=== PATIENT | female | born 1945 | race Hispanic/Latino ===

== ENCOUNTER → 2017-11-18 | Outpatient (CLI) | payer OTHER | END | disposition home or self-care (01) | LOC: RAH 07:35 | PROVIDERS: ATTEND Family Medicine | DX: R10.9 Unspecified abdominal pain (principal); Z90.49 Acquired absence of other specified parts of digestive tract | CPT/HCPCS: 76700 ==

== ENCOUNTER 2018-01-14 22:02 | Emergency (ER) | payer OTHER ==
[2018-01-14 22:40] LABS: CREATININE 1.1 mg/dL (0.5-1.5); POTASSIUM 4.5 mmol/L (3.5-5.1)
[2018-01-14 22:42] LABS: BASOPHILS % (AUTO) 0.7 % (0.0-5.0); EOSINOPHILS % (AUTO) 0.2 % (0.0-8.0); HEMATOCRIT 35.8 % (36-48); LYMPHOCYTES % (AUTO) 11.8 % (21.0-51.0); MEAN CORPUSCULAR HEMOGLOBIN 31.2 pg (27.0-33.0); MEAN CORPUSCULAR HGB CONC 34.7 g/dL (32.0-36.0); MEAN CORPUSCULAR VOLUME 89.8 fL (79-99); MONOCYTES % (AUTO) 6.9 % (3.0-13.0); NEUTROPHILS % (AUTO) 80.4 % (40.0-77.0); PLATELET COUNT (AUTO) 270 K/uL (130-400); RED BLOOD CELL COUNT(AUTO) 3.99 MIL/uL (4.00-5.50); RED CELL DISTRIBUTION WIDTH 13.3 % (11.0-15.5); WHITE BLOOD COUNT (AUTO) 10.9 K/uL (4.8-10.8)
[2018-01-14 22:44] LABS: ALBUMIN 3.4 g/dL (3.5-5.0); BILIRUBIN,TOTAL 0.5 mg/dL (0.2-1.0); TOTAL PROTEIN, SERUM 7.8 g/dL (6.0-8.3)
[2018-01-14] MEDS ORDERED: ASPIRIN 325 MG TABLET ONE (23:01)
[2018-01-14] MEDS ORDERED: ACETAMINOPHEN 325 MG TAB ONE (23:01)
[2018-01-14 23:16] LABS: APPEARANCE,URINE Clear (CLEAR); BILIRUBIN,URINE Negative (NEGATIVE); COLOR,URINE Yellow (YELLOW); GLUCOSE, URINE (UA) Negative (NEGATIVE); KETONES,URINE Negative (NEGATIVE); LEUKOCYTE ESTERASE ,URINE Trace (NEGATIVE); NITRATE,URINE Negative (NEGATIVE); OCCULT BLOOD,URINE Negative (NEGATIVE); PROTEIN,URINE Negative (NEGATIVE); UROBILINOGEN,URINE 0.2 mg/dL (0.2-1.0)
[2018-01-14 23:44] LABS: BACTERIA,URINE Rare /HPF (None Seen); RBC,URINE 0-1 /HPF (0-1); SQUAMOUS EPITHELIAL CELL,UR Moderate /HPF (0-2); WBC,URINE 0-1 /HPF (0-1)
[2018-01-15] MEDS ORDERED: FAMOTIDINE 20MG TAB 20 MG TAB ONE ×2 (00:49→00:54)
[2018-01-15] MEDS ORDERED: SUCRALFATE 1 GM TABLET ONE ×2 (00:49→00:53)
== END 2018-01-15 01:58 | disposition home or self-care (01) ==
LOC: EDH 22:02
DX: B34.9 Viral infection, unspecified (principal); J20.9 Acute bronchitis, unspecified; R51 Headache; E11.9 Type 2 diabetes mellitus without complications; E78.5 Hyperlipidemia, unspecified; I10 Essential (primary) hypertension; Z90.710 Acquired absence of both cervix and uterus; Z90.49 Acquired absence of other specified parts of digestive tract; Z79.84 Long term (current) use of oral hypoglycemic drugs; Z79.899 Other long term (current) drug therapy
CPT/HCPCS: 36415; 71046; 80053; 81001; 83690; 84484; 85025; 87804; 93005

== ENCOUNTER → 2018-09-23 | Outpatient (CLI) | payer OTHER | END | disposition home or self-care (01) | LOC: RAH 08:25 | PROVIDERS: ATTEND Family Medicine | DX: I37.1 Nonrheumatic pulmonary valve insufficiency (principal); I12.9 Hypertensive chronic kidney disease with stage 1 through stage 4 chronic kidney disease, or unspecified chronic kidney disease; N18.9 Chronic kidney disease, unspecified | CPT/HCPCS: 93306 ==

== ENCOUNTER → 2018-12-26 | Outpatient (CLI) | payer OTHER ==
[~2018-12-26] VITALS: Ht 152.4 cm; Wt 89.4 kg
[~2018-12-26] MED LIST: REGADENOSON 0.4 MG/5 ML PF SYG IVP SCH
== END | disposition home or self-care (01) ==
LOC: RAH 08:16
PROVIDERS: ATTEND Family Medicine
DX: I25.9 Chronic ischemic heart disease, unspecified (principal); R07.9 Chest pain, unspecified; I10 Essential (primary) hypertension
CPT/HCPCS: 78452; 93017; 96374; A9500 ×2; J2785

== ENCOUNTER → 2019-04-18 | Outpatient (CLI) | payer OTHER | END | disposition home or self-care (01) | LOC: OIH 15:29 | PROVIDERS: ATTEND Family Medicine | DX: M19.071 Primary osteoarthritis, right ankle and foot (principal); I70.90 Unspecified atherosclerosis; R22.41 Localized swelling, mass and lump, right lower limb; R07.81 Pleurodynia | CPT/HCPCS: 71100; 73610; 73630 ==

== ENCOUNTER → 2019-07-25 | Outpatient (CLI) | payer OTHER | END | disposition home or self-care (01) | LOC: OIH 14:40 | PROVIDERS: ATTEND Family Medicine | DX: R06.02 Shortness of breath (principal) | CPT/HCPCS: 71046 ==

== ENCOUNTER → 2019-10-01 | Outpatient (CLI) | payer OTHER | END | disposition home or self-care (01) | LOC: SHCH 13:47 | PROVIDERS: ATTEND Internal Medicine Cardiovascular Disease | DX: I51.7 Cardiomegaly (principal); I10 Essential (primary) hypertension | CPT/HCPCS: 93306 ==

== ENCOUNTER 2019-11-13 07:10 | Day surgery (SDC) | payer OTHER ==
[2019-11-07 14:30] LABS: BASOPHILS % (AUTO) 0.5 % (0.0-5.0); EOSINOPHILS % (AUTO) 1.2 % (0.0-8.0); HEMATOCRIT 39.9 % (36-48); LYMPHOCYTES % (AUTO) 20.5 % (21.0-51.0); MEAN CORPUSCULAR HEMOGLOBIN 30.4 pg (27.0-33.0); MEAN CORPUSCULAR HGB CONC 32.6 g/dL (32.0-36.0); MEAN CORPUSCULAR VOLUME 93.2 fL (79-99); NEUTROPHILS % (AUTO) 71.3 % (40.0-77.0); PLATELET COUNT (AUTO) 272 K/uL (130-400); RED BLOOD CELL COUNT(AUTO) 4.28 MIL/uL (4.00-5.50); WHITE BLOOD COUNT (AUTO) 10.5 K/uL (4.8-10.8)
[2019-11-07 14:31] VITALS: BP 145/80
[2019-11-07 14:37] LABS: CREATININE 0.8 mg/dL (0.5-1.5); POTASSIUM 3.9 mmol/L (3.5-5.1)
[2019-11-07 14:40] LABS: INR 0.97 (0.85-1.15); PROTHROMBIN TIME 10.2 SEC (9.6-11.6)
[2019-11-07 14:56] LABS: APPEARANCE,URINE Cloudy (CLEAR); BILIRUBIN,URINE Negative (NEGATIVE); COLOR,URINE Dark Yellow (YELLOW); GLUCOSE, URINE (UA) Negative (NEGATIVE); KETONES,URINE Trace mg/dL (NEGATIVE); LEUKOCYTE ESTERASE ,URINE Moderate (NEGATIVE); NITRATE,URINE Negative (NEGATIVE); OCCULT BLOOD,URINE Negative (NEGATIVE); PH,URINE 5.5 (5.0-8.0); PROTEIN,URINE POS 1+ mg/dL (NEGATIVE)
[2019-11-07 15:10] LABS: BACTERIA,URINE Many /HPF (None Seen); RBC,URINE None Seen /HPF (0-1); SQUAMOUS EPITHELIAL CELL,UR 0-2 /HPF (0-2)
--- NOTE | 2019-11-10 10:23 | NUR ---
PA FOR DR. NICOLE GONZALES NOTIFIED OF ABNORMAL UA, NO NEW ORDERS RECEIVED, OK TO PROCEED WITH [facility].
[2019-11-13] VITALS (10 sets, daily range): BP systolic 119–175; BP diastolic 62–83
[~2019-11-13] VITALS: Ht 152.4 cm; Wt 92.5 kg
[~2019-11-13 07:10] MED LIST changes: +FLUT1BLS IH; +INSU300I SQ; +METF-446 PO; +METO-408 PO; +OMEP40CA13 PO; -REGADENOSON 0.4 MG/5 ML PF SYG IVP SCH; +SIMV-46 PO; +SODIUM CHLORIDE 0.9% 500ML 500 ML IV SCH; +TRAZ-187 PO
[2019-11-13] MEDS ORDERED: SODIUM CHLORIDE 0.9% 1000ML 1,000 ML IV ONE (07:34)
--- NOTE | 2019-11-13 08:20 | NUR ---
FLACA ALTAMIRANO NOTIFIED OF GLUCOSE. ORDERS RECEIVED TO FOLLOW [facility] FOR INSULIN AND RECHECK INSULIN IN 30 MINUTES
--- NOTE | 2019-11-13 08:30 | NUR ---
REPORT ASSUMED CARE OF PT FROM MATHEW SAWYER. AWAKE IN NO ACUTE DISTRESS. DENIES PAIN OR SOA AT PRESENT TIME. 22 GAUGE TO LEFT WRIST WITH NS AT KVO. CONNECTED TO CONTINUOUS CARDIOPULMONARY MONITORING. SIDE RAILS UP X2, BED IN LOWEST POSITION, AND CALL LIGHT W/IN REACH.
[2019-11-13] MEDS ORDERED: INSULIN HUMULIN R 100 UNIT/ML 3ML ONE (08:43)
--- NOTE | 2019-11-13 09:34 | NUR ---
HYPERGLYCEMIA NOTIFIED FLACA FORD REGARDING F/U BLOOD SUGAR 292. STATED, "LET ME CALL DR. RIVERA AND I'LL CALL YOU BACK"
--- NOTE | 2019-11-13 10:37 | NUR ---
F/U HYPERGLYCEMIA BLOOD SUGAR 291. PER JANET HE HASN'T BEEN ABLE TO SPEAK WITH DR. RIVERA, BUT HE WILL CALL ME AFTER HE SPEAKS WITH HIM.
--- NOTE | 2019-11-13 11:13 | NUR ---
HYPERGLYCEMIA 20 UNITS OF HUMULIN R ADMINISTERED ORDERED BY DR. RIVERA.
[2019-11-13] MEDS ORDERED: INSULIN HUMULIN R 100 UNIT/ML 3ML SQ SCH (12:00)
[2019-11-13] MEDS ORDERED: SODIUM BICARB 50MEQ 50ML VIAL ONE (12:18)
[2019-11-13] MEDS ORDERED: NICARDIPINE HCL 25 MG/10 ML ML IV ONE (12:19)
[2019-11-13] MEDS ORDERED: NITROGLYCERIN 1 MG/VIAL VIAL IV ONE (12:19)
[2019-11-13] MEDS ORDERED: MIDAZOLAM HCL 1 MG/ML 2ML VIAL ONE (12:19)
[2019-11-13] MEDS ORDERED: HEPARIN SODIUM 1000UNIT/ML 10ML VIAL ONE (12:19)
[2019-11-13] MEDS ORDERED: LIDOCAINE HCL 2% 20ML ONE (12:20)
[2019-11-13] MEDS ORDERED: IOHEXOL 350 MG/ML 100ML INFUS..BTL IV ONE (12:20)
[2019-11-13] MEDS ORDERED: FENTANYL CITRATE PF 50 MCG/1 ML 2ML VIAL ONE ×2 (12:20→13:24)
--- NOTE | 2019-11-13 12:20 | NUR ---
CATHLAB PT TAKEN TO [facility] FOR SCHEDULED PROCEDURE VIA BED,
[2019-11-13] MEDS ORDERED: BIVALIRUDIN 250 MG/VIAL IV ONE (12:47)
[2019-11-13] MEDS ORDERED: IOHEXOL-350 50ML VIAL IV ONE (13:18)
--- NOTE | 2019-11-13 14:45 | NUR ---
POST-PROCEDURE RECEIVED FROM MANAGER MATH VIA BED S/P [facility]. AWAKE IN NO ACUTE DISTRESS. AAOX3. CONNECTED TO CONTINUOUS CARDIOPULMONARY MONITORING. RIGHT RADIAL BAND WITH 16ML OF AIR. NO SIGNS OF BLEEDING. PULSE OX TO RIGHT HAND 97%. PERCLOSE DRESSING TO RIGHT FEMORAL CLEAN, DRY, AND INTACT;SITE SOFT, NON-TENDER; NO SIGNS OF BLEEDING. EDUCATED PT AND FAMILY OF IMPORTANCE OF KEEPING HEAD FLAT AND RIGHT LEG STRAIGHT. BOTH VERBALIZED UNDERSTANDING. SIDE RAILS UP X2, BED IN LOWEST POSITION, AND CALL LIGHT W/IN REACH.
--- NOTE | 2019-11-13 14:48 | NUR ---
ROUNDS DR. RIVERA IN TO SEE PATIENT. FINDINGS FROM CATH PROCEDURE DISCUSSED WITH PT AND FAMILY IN GREEK; DISCUSSED NEW MEDICATIONS TO BE STARTED. PT AND FAMILY VERBALIZED UNDERSTANDING.
--- NOTE | 2019-11-13 15:05 | NUR ---
REPORT BEDSIDE REPORT GIVEN TO MATHEW HINOJOSA USING SBAR. CATH SITE TO RIGHT RADIAL (WITH RADIAL BAND) AND RIGHT FEMORAL W/ PERCLOSE CLEAN, DRY, AND INTACT;SITE W/O SIGNS OF BLEEDING. 2ML OF AIR REMOVED FROM RIGHT RADIAL BAND (14ML LEFT IN BAND); NO SIGNS OF BLEEDING NOTED. AWAKE IN NO ACUTE DISTRESS.
--- NOTE | 2019-11-13 16:29 | NUR ---
AT 1530 RECEIVED REPORT FROM MICAELA Boyd RN , PT IS LAYING FLAT IN BED, NO DISTRESS, DRESSING TO RIGHT GROIN D/I, PEDAL PULSES PRESENT TO BILATERAL FEET. NO C/O PAIN . TR BAND INTACT, SITE IS D/I NO ACTIVE BLEEDING OR HEMATOMA TO RT WRIST AND RT GROIN SITES. 14ML AIR IN TR BAND.
--- NOTE | 2019-11-13 19:00 | NUR ---
PT IS AAOX 3, NO C/O PAIN, DRESSING TO RT WRIST AND RT GROIN D/I. NO DISTRESS. INSTRUCTIONS GIVEN TO PT AND SON, BOTH VERBALIZED UNDERSTANDING. PRESCRIPTIONS GIVEN. PT STABLE, IV D/C, PT DRESSED WITH ASSISTANCE. PT TAKEN OUT IN W/C AND DRIVEN HOME BY SON SPOUSE.
== END 2019-11-13 19:00 | disposition home or self-care (01) ==
LOC: DAH 07:10
PROVIDERS: ATTEND Internal Medicine Cardiovascular Disease
DX: I25.119 Atherosclerotic heart disease of native coronary artery with unspecified angina pectoris (principal); E11.9 Type 2 diabetes mellitus without complications; I10 Essential (primary) hypertension; Z90.49 Acquired absence of other specified parts of digestive tract; Z90.710 Acquired absence of both cervix and uterus; Z79.01 Long term (current) use of anticoagulants; Z79.84 Long term (current) use of oral hypoglycemic drugs; Z79.899 Other long term (current) drug therapy
CPT/HCPCS: 36415; 71045; 80048; 81001; 82948 ×5; 85025; 85610; 85730; 93005; 93458; 96374; A4215; A4216; A4221; A4222; A4223 ×3; A4606; A4663; C1760; C1769 ×3; C1894 ×3; J1644 ×2; J1815 ×2; J2250; J3010 ×2; J3490 ×4; J7030; Q9965 ×2; Q9967; 99156; 99157; J0583

== ENCOUNTER 2020-10-24 12:12 | Observation (INO) | payer OTHER ==
[~2020-10-24 12:12] MED LIST changes: -SIMV-46 PO; -SODIUM CHLORIDE 0.9% 500ML 500 ML IV SCH
[2020-10-24 13:07] LABS: BASOPHILS % (AUTO) 0.4 % (0.0-5.0); HEMATOCRIT 37.6 % (36-48); LYMPHOCYTES % (AUTO) 9.4 % (21.0-51.0); MEAN CORPUSCULAR HGB CONC 32.7 g/dL (32.0-36.0); MEAN CORPUSCULAR VOLUME 91.7 fL (79-99); MONOCYTES % (AUTO) 6.4 % (3.0-13.0); NEUTROPHILS % (AUTO) 78.4 % (40.0-77.0); PLATELET COUNT (AUTO) 183 K/uL (130-400); RED CELL DISTRIBUTION WIDTH 13.1 % (11.0-15.5); WHITE BLOOD COUNT (AUTO) 8.2 K/uL (4.8-10.8)
[2020-10-24 13:12] LABS: POTASSIUM 4.5 mmol/L (3.5-5.1)
[2020-10-24 13:16] LABS: INR 1.02 (0.85-1.15); PROTHROMBIN TIME 10.9 SEC (9.6-11.6)
[2020-10-24 13:17] LABS: ALBUMIN 3.1 g/dL (3.5-5.0); BILIRUBIN,TOTAL 0.4 mg/dL (0.2-1.0); TOTAL PROTEIN, SERUM 6.7 g/dL (6.0-8.3)
[2020-10-24 13:18] LABS: PARTIAL THROMBOPLASTIN TIME 26.3 SEC (26.3-35.5)
[2020-10-24] MEDS ORDERED: INSULIN HUMULIN R 100 UNIT/ML 3ML ONE (13:21)
[2020-10-24] MEDS ORDERED: SODIUM CHLORIDE 0.9% 1000ML 1,000 ML IV ONE (13:22)
[2020-10-24 13:24] LABS: BILIRUBIN,URINE Negative (NEGATIVE); COLOR,URINE Yellow (YELLOW); GLUCOSE, URINE (UA) >=1000 mg/dL (NEGATIVE); KETONES,URINE Trace mg/dL (NEGATIVE); LEUKOCYTE ESTERASE ,URINE Negative (NEGATIVE); NITRATE,URINE Negative (NEGATIVE); OCCULT BLOOD,URINE Negative (NEGATIVE); PH,URINE 5.5 (5.0-8.0); PROTEIN,URINE POS 1+ mg/dL (NEGATIVE)
[2020-10-24 13:28] LABS: B-TYPE NATRIURETIC PEPTIDE 21 pg/mL (0-100)
[2020-10-24 13:29] LABS: APPEARANCE,URINE CLEAR (CLEAR)
[2020-10-24 13:45] LABS: RBC,URINE None Seen /HPF (0-1)
[2020-10-24 13:46] LABS: BACTERIA,URINE Rare /HPF (None Seen); SQUAMOUS EPITHELIAL CELL,UR Few /HPF (0-2)
[2020-10-24] MEDS ORDERED: ACETAMINOPHEN-CODEINE 300/30MG TAB ONE (13:57)
[2020-10-24] MEDS ORDERED: GLUCAGON 1MG KIT 1 MG ML IM PRN (19:30)
[2020-10-24] MEDS ORDERED: POTASSIUM CHLORIDE 20 MEQ ERTAB PO PRN (19:30)
[2020-10-24] MEDS ORDERED: SODIUM CHLORIDE 0.9% 1000ML 1,000 ML IV SCH (19:30)
[2020-10-24] MEDS ORDERED: POTASSIUM CHLORIDE 10% ELIXIR 20 MEQ/15 ML UDCUP PO PRN (19:30)
[2020-10-24] MEDS ORDERED: ONDANSETRON HCL 4 MG/2 ML VIAL IVP PRN (19:30)
[2020-10-24] MEDS ORDERED: DEXTROSE 50%-WATER 50 ML DISP.SYRIN IV PRN (19:30)
[2020-10-24] MEDS ORDERED: ALBUTEROL INHALER 90MCG/INH IH PRN (19:30)
[2020-10-24] MEDS ORDERED: ACETAMINOPHEN 325 MG TAB PO PRN (19:30)
[2020-10-24] MEDS ORDERED: LIDOCAINE HCL-MPF 1% 2ML VIAL IV PRN (19:30)
[2020-10-24] MEDS ORDERED: POTASSIUM CHLORIDE 20MEQ/100ML 100 ML IV PRN (19:30)
[2020-10-24] MEDS ORDERED: ACETAMINOPHEN 650 MG SUPPOSITORY RC PRN (19:30)
[2020-10-24] MEDS ORDERED: INSULIN HUMULIN R 100 UNIT/ML 3ML SQ SCH (21:00)
[2020-10-24 21:54] LABS: CREATINE KINASE, TOTAL 86 U/L (21-232); MYOGLOBIN 68 ng/mL (10-92); TROPONIN I < 0.04 ng/mL (0.00-0.06)
[2020-10-25] MEDS ORDERED: AZITHROMYCIN 250 MG TABLET PO SCH (00:15)
[2020-10-25] MEDS ORDERED: CEFTRIAXONE SODIUM 1 GM IVP SCH (00:15)
[2020-10-25] MEDS ORDERED: CEFTRIAXONE SODIUM 1 GM ONE (00:18)
[2020-10-25] MEDS ORDERED: AZITHROMYCIN 250 MG TABLET PO ONE (00:19)
[2020-10-25 06:08] LABS: BASOPHILS % (AUTO) 0.4 % (0.0-5.0); HEMATOCRIT 37.1 % (36-48); LYMPHOCYTES % (AUTO) 9.9 % (21.0-51.0); MEAN CORPUSCULAR HEMOGLOBIN 29.9 pg (27.0-33.0); MEAN CORPUSCULAR HGB CONC 32.3 g/dL (32.0-36.0); MEAN CORPUSCULAR VOLUME 92.3 fL (79-99); MONOCYTES % (AUTO) 7.3 % (3.0-13.0); NEUTROPHILS % (AUTO) 78.8 % (40.0-77.0); PLATELET COUNT (AUTO) 160 K/uL (130-400); RED BLOOD CELL COUNT(AUTO) 4.02 MIL/uL (4.00-5.50); WHITE BLOOD COUNT (AUTO) 8.5 K/uL (4.8-10.8)
[2020-10-25 06:37] LABS: CREATININE 0.9 mg/dL (0.5-1.5); MAGNESIUM 0.9 mg/dL (1.80-2.40); PHOSPHORUS 4.1 mg/dL (2.5-4.9); POTASSIUM 4.5 mmol/L (3.5-5.1)
[2020-10-25 08:13] LABS: CREATINE KINASE, TOTAL 74 U/L (21-232); MYOGLOBIN 43 ng/mL (10-92); TROPONIN I < 0.04 ng/mL (0.00-0.06)
[2020-10-25] MEDS ORDERED: MAGNESIUM 2GM PREMIX 50ML 100 ML IV ONE (09:04)
== END 2020-10-25 14:27 | disposition home or self-care (01) ==
LOC: EDH 12:12 → EDHIP 19:18
PROVIDERS: ADMIT Internal Medicine Critical Care Medicine; ATTEND Internal Medicine Critical Care Medicine
DX: U07.1 COVID-19 (principal); R07.89 Other chest pain; I25.10 Atherosclerotic heart disease of native coronary artery without angina pectoris; I11.0 Hypertensive heart disease with heart failure; I50.9 Heart failure, unspecified; E78.5 Hyperlipidemia, unspecified; E11.65 Type 2 diabetes mellitus with hyperglycemia; Z90.710 Acquired absence of both cervix and uterus; Z90.49 Acquired absence of other specified parts of digestive tract; Z79.899 Other long term (current) drug therapy
CPT/HCPCS: 36415 ×2; 71045; 80048; 80053; 81001; 82550 ×3; 82948; 83735; 83874 ×2; 83880; 84100; 84145; 84484 ×3; 85025 ×2; 85610; 85730; 87426; 93005; 99291; G0378 ×19; J0696; J1815; J3475; J7030

== ENCOUNTER → 2020-12-12 | Outpatient (CLI) | payer OTHER ==
[~2020-12-12] MED LIST changes: +REGADENOSON 0.4 MG/5 ML PF SYG IVP SCH
== END | disposition home or self-care (01) ==
LOC: RAH 08:32
PROVIDERS: ATTEND Internal Medicine
DX: R06.02 Shortness of breath (principal); R07.9 Chest pain, unspecified
CPT/HCPCS: 78452; 93017; 96374; A9500 ×2; J2785

== ENCOUNTER → 2020-12-13 | Outpatient (CLI) | payer OTHER ==
[~2020-12-13] MED LIST changes: -REGADENOSON 0.4 MG/5 ML PF SYG IVP SCH
== END | disposition home or self-care (01) ==
LOC: RAH 09:04
PROVIDERS: ATTEND Internal Medicine
DX: R55 Syncope and collapse (principal); R06.02 Shortness of breath; R07.9 Chest pain, unspecified
CPT/HCPCS: 93306; 93356

== ENCOUNTER 2021-03-03 14:52 | Emergency (ER) | payer OTHER ==
[2021-03-03] MEDS ORDERED: METHYLPREDNISOLONE SOD SUCC 125MG/2ML VIAL ONE (15:12)
[2021-03-03] MEDS ORDERED: DiphenhydrAMINE HCL 50 MG/ML VIAL ONE (15:12)
[2021-03-03] MEDS ORDERED: ONDANSETRON HCL 4 MG/2 ML VIAL ONE (15:12)
[2021-03-03] MEDS ORDERED: FAMOTIDINE/PF 20 MG/2 ML VIAL IV ONE (15:12)
[2021-03-03 15:32] LABS: BASOPHILS % (AUTO) 0.4 % (0.0-5.0); EOSINOPHILS % (AUTO) 5.7 % (0.0-8.0); HEMATOCRIT 39.9 % (36-48); LYMPHOCYTES % (AUTO) 16.1 % (21.0-51.0); MEAN CORPUSCULAR HGB CONC 33.8 g/dL (32.0-36.0); MEAN CORPUSCULAR VOLUME 91.5 fL (79-99); MONOCYTES % (AUTO) 2.4 % (3.0-13.0); NEUTROPHILS % (AUTO) 74.6 % (40.0-77.0); PLATELET COUNT (AUTO) 233 K/uL (130-400); RED BLOOD CELL COUNT(AUTO) 4.36 MIL/uL (4.00-5.50); RED CELL DISTRIBUTION WIDTH 13.3 % (11.0-15.5); WHITE BLOOD COUNT (AUTO) 15.8 K/uL (4.8-10.8)
[2021-03-03 15:54] LABS: ALBUMIN 3.5 g/dL (3.5-5.0); BILIRUBIN,TOTAL 0.7 mg/dL (0.2-1.0); POTASSIUM 4.5 mmol/L (3.5-5.1); TOTAL PROTEIN, SERUM 8.4 g/dL (6.0-8.3)
== END 2021-03-03 17:55 | disposition home or self-care (01) ==
LOC: EDH 14:52
DX: T63.441A Toxic effect of venom of bees, accidental (unintentional), initial encounter (principal); R11.2 Nausea with vomiting, unspecified; I12.9 Hypertensive chronic kidney disease with stage 1 through stage 4 chronic kidney disease, or unspecified chronic kidney disease; E11.22 Type 2 diabetes mellitus with diabetic chronic kidney disease; N18.9 Chronic kidney disease, unspecified; E78.5 Hyperlipidemia, unspecified; Z90.710 Acquired absence of both cervix and uterus; Z90.49 Acquired absence of other specified parts of digestive tract; Y92.89 Other specified places as the place of occurrence of the external cause
CPT/HCPCS: 36415; 80053; 84484; 85025; 93005; 96374; 96375; 99284; J1200; J2405; J2930; J3490

== ENCOUNTER 2021-06-03 17:40 | Inpatient (IN) | payer OTHER ==
[~2021-06-03] VITALS: Ht 162.6 cm; Wt 79.0 kg
[~2021-06-03 17:40] MED LIST changes: -OMEP40CA13 PO; +OMEP40CA21 PO
[2021-06-03 20:35] LABS: BASOPHILS % (AUTO) 0.7 % (0.0-5.0); EOSINOPHILS % (AUTO) 2.5 % (0.0-8.0); HEMATOCRIT 28.1 % (36-48); LYMPHOCYTES % (AUTO) 15.9 % (21.0-51.0); MEAN CORPUSCULAR HEMOGLOBIN 29.7 pg (27.0-33.0); MEAN CORPUSCULAR HGB CONC 33.1 g/dL (32.0-36.0); MEAN CORPUSCULAR VOLUME 89.8 fL (79-99); MONOCYTES % (AUTO) 8.5 % (3.0-13.0); NEUTROPHILS % (AUTO) 71.7 % (40.0-77.0); PLATELET COUNT (AUTO) 388 K/uL (130-400); RED BLOOD CELL COUNT(AUTO) 3.13 MIL/uL (4.00-5.50); RED CELL DISTRIBUTION WIDTH 13.2 % (11.0-15.5); WHITE BLOOD COUNT (AUTO) 13.4 K/uL (4.8-10.8)
[2021-06-03 20:51] LABS: INR 1.1 (0.85-1.15); PROTHROMBIN TIME 11.9 SEC (9.6-11.6)
[2021-06-03 20:53] VITALS: BP 141/70
[2021-06-03 21:00] LABS: B-TYPE NATRIURETIC PEPTIDE 40 pg/mL (0-100)
[2021-06-03 21:11] LABS: ALBUMIN 2.2 g/dL (3.5-5.0); BILIRUBIN,TOTAL 0.3 mg/dL (0.2-1.0); CREATININE 1.6 mg/dL (0.5-1.5); POTASSIUM 3.4 mmol/L (3.5-5.1); TOTAL PROTEIN, SERUM 7.3 g/dL (6.0-8.3)
[2021-06-03] MEDS ORDERED: BALS60OI TP (23:30)
[2021-06-03] MEDS ORDERED: CLOT45CR62 VG (23:31)
[2021-06-03] MEDS ORDERED: GABA100C PO (23:36)
[2021-06-03] MEDS ORDERED: FLUT1BLS IH (23:39)
[2021-06-03] MEDS ORDERED: INSU300I SQ (23:40)
[2021-06-03] MEDS ORDERED: METF-446 PO (23:41)
[2021-06-03] MEDS ORDERED: FAMO20TA8 PO (23:42)
[2021-06-03] MEDS ORDERED: ASPI-1197 PO (23:44)
[2021-06-03] MEDS ORDERED: CLOP75TA14 PO (23:44)
[2021-06-03] MEDS ORDERED: FURO20TA4 PO (23:45)
[2021-06-03] MEDS ORDERED: ATOR40TA71 PO (23:48)
[2021-06-03] MEDS ORDERED: TRAM50TA4 PO (23:49)
[2021-06-03] MEDS ORDERED: ACET-3194 PO (23:51)
[2021-06-03] MEDS ORDERED: GUAI100S13 PO (23:54)
[2021-06-04] VITALS (9 sets, daily range): BP systolic 136–155; BP diastolic 53–76
[2021-06-04] MEDS ORDERED: 0.9%NACL 50ML IV SCH (02:00)
[2021-06-04] MEDS ORDERED: ZOSYN 3.375GM+NS 50ML 50 ML IV ONE (02:14)
[2021-06-04] MEDS: ZOSYN 3.375GM +NS 50ML IV SCH ×3 (02:21→21:40)
[2021-06-04 06:17] LABS: BASOPHILS % (AUTO) 0.9 % (0.0-5.0); EOSINOPHILS % (AUTO) 2.6 % (0.0-8.0); HEMATOCRIT 27.9 % (36-48); MEAN CORPUSCULAR HEMOGLOBIN 29.3 pg (27.0-33.0); MEAN CORPUSCULAR HGB CONC 32.3 g/dL (32.0-36.0); MEAN CORPUSCULAR VOLUME 90.9 fL (79-99); MONOCYTES % (AUTO) 8.9 % (3.0-13.0); NEUTROPHILS % (AUTO) 70.1 % (40.0-77.0); PLATELET COUNT (AUTO) 337 K/uL (130-400); RED BLOOD CELL COUNT(AUTO) 3.07 MIL/uL (4.00-5.50); RED CELL DISTRIBUTION WIDTH 13.3 % (11.0-15.5); WHITE BLOOD COUNT (AUTO) 11.1 K/uL (4.8-10.8)
[2021-06-04 06:28] LABS: ALBUMIN 1.9 g/dL (3.5-5.0); CREATININE 1.5 mg/dL (0.5-1.5)
[2021-06-04 06:31] LABS: BILIRUBIN,TOTAL 0.4 mg/dL (0.2-1.0); TOTAL PROTEIN, SERUM 6.6 g/dL (6.0-8.3)
[2021-06-04] MEDS ORDERED: DEXTROSE 50%-WATER 50 ML DISP.SYRIN IV ONE (06:39)
[2021-06-04] MEDS ORDERED: POTASSIUM CHLORIDE 20MEQ/100ML 100 ML IV PRN (18:30)
[2021-06-04] MEDS ORDERED: POTASSIUM CHLORIDE 10% ELIXIR 20 MEQ/15 ML UDCUP PO PRN (18:30)
[2021-06-04] MEDS ORDERED: LIDOCAINE HCL-MPF 1% 2ML VIAL IV PRN (18:30)
[2021-06-04] MEDS: KCL 20 MEQ ERTAB PO PRN (19:18)
[2021-06-04] MEDS ORDERED: GUAIFENESIN SUGAR-FREE 100 MG/5 ML UDCUP PO PRN (21:00)
[2021-06-04] MEDS: GABAPENTIN 100 MG CAPSULE PO SCH (21:40)
[2021-06-04] MEDS: TRAZODONE HCL 100 MG TABLET PO SCH (21:40)
[2021-06-04] MEDS: TRAMADOL HCL 50 MG TABLET PO PRN (21:41)
[2021-06-05 04:00] VITALS: BP 153/69
[2021-06-05 05:14] LABS: BASOPHILS % (AUTO) 0.8 % (0.0-5.0); HEMATOCRIT 25.9 % (36-48); LYMPHOCYTES % (AUTO) 18.2 % (21.0-51.0); MEAN CORPUSCULAR HEMOGLOBIN 29.1 pg (27.0-33.0); MEAN CORPUSCULAR HGB CONC 32.4 g/dL (32.0-36.0); MEAN CORPUSCULAR VOLUME 89.6 fL (79-99); MONOCYTES % (AUTO) 8.9 % (3.0-13.0); NEUTROPHILS % (AUTO) 67.8 % (40.0-77.0); PLATELET COUNT (AUTO) 337 K/uL (130-400); RED BLOOD CELL COUNT(AUTO) 2.89 MIL/uL (4.00-5.50); RED CELL DISTRIBUTION WIDTH 13.2 % (11.0-15.5); WHITE BLOOD COUNT (AUTO) 9.5 K/uL (4.8-10.8)
[2021-06-05 05:34] LABS: ALBUMIN 1.9 g/dL (3.5-5.0); BILIRUBIN,TOTAL 0.3 mg/dL (0.2-1.0); CREATININE 1.5 mg/dL (0.5-1.5); POTASSIUM 3.4 mmol/L (3.5-5.1); TOTAL PROTEIN, SERUM 6.3 g/dL (6.0-8.3)
[2021-06-05] MEDS: KCL 20 MEQ ERTAB PO PRN ×2 (06:02→12:14)
[2021-06-05 08:10] VITALS: BP 137/66
[2021-06-05] MEDS: FLUTICASONE/VILANTEROL 1 EACH BLST.W.DEV IH SCH (09:00)
[2021-06-05] MEDS: NYSTATIN-TRIAMCINOLONE CREAM 15 GM TP SCH ×2 (09:00→20:39)
[2021-06-05] MEDS: BALSAM PERU/CASTOR OIL 60 GM TUBE TP SCH (09:00)
[2021-06-05] MEDS: ASPIRIN 81MG CHEW TAB PO SCH (09:39)
[2021-06-05] MEDS: CLOPIDOGREL 75MG TAB PO SCH (09:39)
[2021-06-05] MEDS: METOPROLOL SUCCINATE 50 MG TAB.SR.24H PO SCH (09:39)
[2021-06-05] MEDS: FAMOTIDINE 20MG TAB PO SCH (09:39)
[2021-06-05] MEDS: GABAPENTIN 100 MG CAPSULE PO SCH ×2 (09:40→20:38)
[2021-06-05] MEDS: FUROSEMIDE 20 MG TABLET PO SCH (09:41)
[2021-06-05] MEDS: ZOSYN 3.375GM +NS 50ML IV SCH ×2 (09:41→20:40)
[2021-06-05 11:40] VITALS: BP 151/39
[2021-06-05 16:02] VITALS: BP 162/57
[2021-06-05] MEDS: ATORVASTATIN 40 MG TABLET PO SCH (17:11)
[2021-06-05] MEDS: TRAMADOL HCL 50 MG TABLET PO PRN (18:06)
[2021-06-05 19:50] VITALS: BP 149/53
[2021-06-05] MEDS: TRAZODONE HCL 100 MG TABLET PO SCH (20:38)
[2021-06-05 23:33] VITALS: BP 135/56
[2021-06-06 04:08] VITALS: BP 140/61
[2021-06-06 08:00] VITALS: BP 134/41
[2021-06-06] MEDS: FUROSEMIDE 20 MG TABLET PO SCH (08:32)
[2021-06-06] MEDS: CLOPIDOGREL 75MG TAB PO SCH (08:32)
[2021-06-06] MEDS: ASPIRIN 81MG CHEW TAB PO SCH (08:32)
[2021-06-06] MEDS: FAMOTIDINE 20MG TAB PO SCH (08:33)
[2021-06-06] MEDS: METOPROLOL SUCCINATE 50 MG TAB.SR.24H PO SCH (08:33)
[2021-06-06] MEDS: GABAPENTIN 100 MG CAPSULE PO SCH ×2 (08:33→21:42)
[2021-06-06] MEDS: ZOSYN 3.375GM +NS 50ML IV SCH ×2 (08:35→21:42)
[2021-06-06] MEDS: FLUTICASONE/VILANTEROL 1 EACH BLST.W.DEV IH SCH (09:00)
[2021-06-06] MEDS: BALSAM PERU/CASTOR OIL 60 GM TUBE TP SCH (09:40)
[2021-06-06] MEDS: NYSTATIN-TRIAMCINOLONE CREAM 15 GM TP SCH ×2 (09:40→21:48)
[2021-06-06 11:55] VITALS: BP 127/70
[2021-06-06 16:00] VITALS: BP 155/58
[2021-06-06] MEDS: ATORVASTATIN 40 MG TABLET PO SCH (18:06)
[2021-06-06] MEDS: TRAMADOL HCL 50 MG TABLET PO PRN (18:09)
[2021-06-06 19:35] VITALS: BP 158/38
[2021-06-06] MEDS: TRAZODONE HCL 100 MG TABLET PO SCH (21:41)
[2021-06-07] VITALS (7 sets, daily range): BP systolic 118–158; BP diastolic 45–65
[2021-06-07 06:16] LABS: MEAN CORPUSCULAR HEMOGLOBIN 29.1 pg (27.0-33.0); MEAN CORPUSCULAR HGB CONC 32.2 g/dL (32.0-36.0); MEAN CORPUSCULAR VOLUME 90.3 fL (79-99); RED BLOOD CELL COUNT(AUTO) 2.99 MIL/uL (4.00-5.50); RED CELL DISTRIBUTION WIDTH 13.1 % (11.0-15.5); WHITE BLOOD COUNT (AUTO) 9.5 K/uL (4.8-10.8)
[2021-06-07 06:40] LABS: CREATININE 1.6 mg/dL (0.5-1.5); POTASSIUM 3.5 mmol/L (3.5-5.1)
[2021-06-07] MEDS: ASPIRIN 81MG CHEW TAB PO SCH (09:28)
[2021-06-07] MEDS: FLUTICASONE/VILANTEROL 1 EACH BLST.W.DEV IH SCH (09:28)
[2021-06-07] MEDS: ZOSYN 3.375GM +NS 50ML IV SCH ×2 (09:28→20:53)
[2021-06-07] MEDS: FUROSEMIDE 20 MG TABLET PO SCH (09:30)
[2021-06-07] MEDS: FAMOTIDINE 20MG TAB PO SCH (09:30)
[2021-06-07] MEDS: CLOPIDOGREL 75MG TAB PO SCH (09:30)
[2021-06-07] MEDS: METOPROLOL SUCCINATE 50 MG TAB.SR.24H PO SCH (09:31)
[2021-06-07] MEDS: GABAPENTIN 100 MG CAPSULE PO SCH ×2 (09:55→20:53)
[2021-06-07] MEDS: NYSTATIN-TRIAMCINOLONE CREAM 15 GM TP SCH ×2 (09:59→20:53)
[2021-06-07] MEDS ORDERED: GLUCAGON 1MG KIT 1 MG ML IM PRN (13:00)
[2021-06-07] MEDS ORDERED: DEXTROSE 50%-WATER 50 ML DISP.SYRIN IV PRN (13:00)
[2021-06-07] MEDS: INSULIN HUMULIN R 100 UNIT/ML 3ML SQ SCH ×2 (17:24→20:18)
[2021-06-07] MEDS: ATORVASTATIN 40 MG TABLET PO SCH (17:33)
[2021-06-07] MEDS: TRAZODONE HCL 100 MG TABLET PO SCH (20:53)
[2021-06-07] MEDS: BALSAM PERU/CASTOR OIL 60 GM TUBE TP SCH (20:54)
[2021-06-08 04:01] VITALS: BP 143/65
[2021-06-08 08:00] VITALS: BP 153/72
[2021-06-08] MEDS: FUROSEMIDE 20 MG TABLET PO SCH (09:19)
[2021-06-08] MEDS: FAMOTIDINE 20MG TAB PO SCH (09:19)
[2021-06-08] MEDS: GABAPENTIN 100 MG CAPSULE PO SCH ×2 (09:19→20:51)
[2021-06-08] MEDS: CLOPIDOGREL 75MG TAB PO SCH (09:19)
[2021-06-08] MEDS: ASPIRIN 81MG CHEW TAB PO SCH (09:19)
[2021-06-08] MEDS: METOPROLOL SUCCINATE 50 MG TAB.SR.24H PO SCH (09:20)
[2021-06-08] MEDS: ZOSYN 3.375GM +NS 50ML IV SCH ×2 (09:35→20:51)
[2021-06-08] MEDS: FLUTICASONE/VILANTEROL 1 EACH BLST.W.DEV IH SCH (09:35)
[2021-06-08] MEDS: NYSTATIN-TRIAMCINOLONE CREAM 15 GM TP SCH ×2 (09:36→20:52)
[2021-06-08] MEDS: BALSAM PERU/CASTOR OIL 60 GM TUBE TP SCH (09:36)
[2021-06-08 11:41] VITALS: BP 139/51
[2021-06-08 16:00] VITALS: BP 155/83
[2021-06-08] MEDS: ATORVASTATIN 40 MG TABLET PO SCH (16:25)
[2021-06-08] MEDS: INSULIN HUMULIN R 100 UNIT/ML 3ML SQ SCH (16:26)
[2021-06-08] MEDS: KCL 20 MEQ ERTAB PO PRN (17:03)
[2021-06-08] MEDS: TRAMADOL HCL 50 MG TABLET PO PRN (18:44)
[2021-06-08 20:00] VITALS: BP 154/76
[2021-06-08] MEDS: TRAZODONE HCL 100 MG TABLET PO SCH (20:51)
[2021-06-08 23:18] VITALS: BP 139/73
[2021-06-09 04:01] VITALS: BP 156/63
[2021-06-09 05:12] LABS: BASOPHILS % (AUTO) 1.2 % (0.0-5.0); EOSINOPHILS % (AUTO) 4.4 % (0.0-8.0); HEMATOCRIT 29.2 % (36-48); LYMPHOCYTES % (AUTO) 17.7 % (21.0-51.0); MEAN CORPUSCULAR HGB CONC 32.2 g/dL (32.0-36.0); MEAN CORPUSCULAR VOLUME 90.1 fL (79-99); MONOCYTES % (AUTO) 8.6 % (3.0-13.0); NEUTROPHILS % (AUTO) 67.6 % (40.0-77.0); PLATELET COUNT (AUTO) 317 K/uL (130-400); RED BLOOD CELL COUNT(AUTO) 3.24 MIL/uL (4.00-5.50); RED CELL DISTRIBUTION WIDTH 13.2 % (11.0-15.5); WHITE BLOOD COUNT (AUTO) 9.4 K/uL (4.8-10.8)
[2021-06-09 05:32] LABS: INR 1.14 (0.85-1.15); PROTHROMBIN TIME 12.3 SEC (9.6-11.6)
[2021-06-09 05:34] LABS: PARTIAL THROMBOPLASTIN TIME 24.3 SEC (26.3-35.5)
[2021-06-09] MEDS: INSULIN HUMULIN R 100 UNIT/ML 3ML SQ SCH ×2 (05:34→16:30)
[2021-06-09 05:35] LABS: CREATININE 1.6 mg/dL (0.5-1.5); POTASSIUM 3.5 mmol/L (3.5-5.1)
[2021-06-09] MEDS: KCL 20 MEQ ERTAB PO PRN (05:51)
[2021-06-09 08:00] VITALS: BP 133/51
[2021-06-09] MEDS: FLUTICASONE/VILANTEROL 1 EACH BLST.W.DEV IH SCH (09:00)
[2021-06-09] MEDS: ASPIRIN 81MG CHEW TAB PO SCH (09:24)
[2021-06-09] MEDS: FUROSEMIDE 20 MG TABLET PO SCH (09:24)
[2021-06-09] MEDS: CLOPIDOGREL 75MG TAB PO SCH (09:24)
[2021-06-09] MEDS: METOPROLOL SUCCINATE 50 MG TAB.SR.24H PO SCH (09:25)
[2021-06-09] MEDS: GABAPENTIN 100 MG CAPSULE PO SCH ×2 (09:26→20:13)
[2021-06-09] MEDS: FAMOTIDINE 20MG TAB PO SCH (09:27)
[2021-06-09] MEDS: ZOSYN 3.375GM +NS 50ML IV SCH ×2 (09:27→20:12)
[2021-06-09] MEDS: NYSTATIN-TRIAMCINOLONE CREAM 15 GM TP SCH ×2 (09:28→20:13)
[2021-06-09] MEDS: BALSAM PERU/CASTOR OIL 60 GM TUBE TP SCH (09:28)
[2021-06-09] MEDS: TRAMADOL HCL 50 MG TABLET PO PRN (09:33)
[2021-06-09 16:00] VITALS: BP 149/87
[2021-06-09] MEDS: ATORVASTATIN 40 MG TABLET PO SCH (17:35)
[2021-06-09 20:00] VITALS: BP 144/64
[2021-06-09] MEDS: TRAZODONE HCL 100 MG TABLET PO SCH (20:13)
[2021-06-10] VITALS (22 sets, daily range): BP systolic 115–160; BP diastolic 64–94
[2021-06-10 05:04] LABS: HEMATOCRIT 30.4 % (36-48); MEAN CORPUSCULAR HEMOGLOBIN 29.4 pg (27.0-33.0); MEAN CORPUSCULAR HGB CONC 33.2 g/dL (32.0-36.0); MEAN CORPUSCULAR VOLUME 88.4 fL (79-99); RED BLOOD CELL COUNT(AUTO) 3.44 MIL/uL (4.00-5.50); RED CELL DISTRIBUTION WIDTH 13.3 % (11.0-15.5); WHITE BLOOD COUNT (AUTO) 10.6 K/uL (4.8-10.8)
[2021-06-10 05:22] LABS: CREATININE 1.6 mg/dL (0.5-1.5); POTASSIUM 3.4 mmol/L (3.5-5.1)
[2021-06-10 05:40] LABS: INR 1.1 (0.85-1.15); PROTHROMBIN TIME 11.9 SEC (9.6-11.6)
[2021-06-10 05:41] LABS: PARTIAL THROMBOPLASTIN TIME 24.1 SEC (26.3-35.5)
[2021-06-10] MEDS: INSULIN HUMULIN R 100 UNIT/ML 3ML SQ SCH ×2 (06:32→16:30)
[2021-06-10] MEDS: KCL 20 MEQ ERTAB PO PRN (06:37)
[2021-06-10] MEDS: FAMOTIDINE 20MG TAB PO SCH (09:00)
[2021-06-10] MEDS: NYSTATIN-TRIAMCINOLONE CREAM 15 GM TP SCH ×2 (09:00→20:51)
[2021-06-10] MEDS: FLUTICASONE/VILANTEROL 1 EACH BLST.W.DEV IH SCH (09:00)
[2021-06-10] MEDS: GABAPENTIN 100 MG CAPSULE PO SCH ×2 (09:00→20:51)
[2021-06-10] MEDS: ASPIRIN 81MG CHEW TAB PO SCH (09:00)
[2021-06-10] MEDS: METOPROLOL SUCCINATE 50 MG TAB.SR.24H PO SCH (09:00)
[2021-06-10] MEDS: FUROSEMIDE 20 MG TABLET PO SCH (09:00)
[2021-06-10] MEDS: BALSAM PERU/CASTOR OIL 60 GM TUBE TP SCH (09:00)
[2021-06-10] MEDS: CLOPIDOGREL 75MG TAB PO SCH (09:00)
[2021-06-10] MEDS: ZOSYN 3.375GM +NS 50ML IV SCH ×2 (09:00→20:50)
[2021-06-10] MEDS ORDERED: ALTEPLASE 2MG VIAL 2 MG/VIAL VIAL IVCATH SCH (11:00)
[2021-06-10] MEDS ORDERED: LIDOCAINE PF 100MG/5ML (2%) SYRINGE 5ML ONE (15:51)
[2021-06-10] MEDS ORDERED: PROPOFOL 10 MG/ML 20ML VIAL IV ONE (15:51)
[2021-06-10] MEDS ORDERED: FENTANYL CITRATE PF 50 MCG/1 ML 2ML VIAL ONE ×3 (15:52→18:32)
[2021-06-10] MEDS ORDERED: ONDANSETRON 4MG INJ ONE (15:52)
[2021-06-10] MEDS ORDERED: ROCURONIUM 10MG/1ML SYR 10 MG/ML ML ONE (15:52)
[2021-06-10] MEDS ORDERED: LIDOCAINE HCL MDV 0.5% 50ML VIAL IJ ONE (16:36)
[2021-06-10] MEDS ORDERED: ROPIVACAINE 0.5% 5MG/ML 30ML IJ ONE (16:36)
[2021-06-10] MEDS ORDERED: MIDAZOLAM HCL 1 MG/ML 2ML VIAL ONE (16:39)
[2021-06-10] MEDS: ATORVASTATIN 40 MG TABLET PO SCH (17:00)
[2021-06-10] MEDS ORDERED: EPHEDRINE SULFATE 50 MG/ML AMPULE ONE (17:47)
[2021-06-10] MEDS ORDERED: NEOSTIGMINE 5MG/5ML SYR IV ONE (18:21)
[2021-06-10] MEDS ORDERED: GLYCOPYRROLATE 1 MG/5 ML SYRINGE ONE (18:21)
[2021-06-10] MEDS: TRAZODONE HCL 100 MG TABLET PO SCH (20:50)
[2021-06-10] MEDS ORDERED: ALTEPLASE 2MG VIAL 2 MG/VIAL VIAL IVCATH ONE (21:30)
[2021-06-11 04:13] VITALS: BP 139/82
[2021-06-11] MEDS: INSULIN HUMULIN R 100 UNIT/ML 3ML SQ SCH ×2 (07:34→17:56)
[2021-06-11 08:00] VITALS: BP 149/79
[2021-06-11] MEDS: ASPIRIN 81MG CHEW TAB PO SCH (10:48)
[2021-06-11] MEDS: CLOPIDOGREL 75MG TAB PO SCH (10:49)
[2021-06-11] MEDS: FUROSEMIDE 20 MG TABLET PO SCH (10:49)
[2021-06-11] MEDS: FAMOTIDINE 20MG TAB PO SCH (10:49)
[2021-06-11] MEDS: GABAPENTIN 100 MG CAPSULE PO SCH ×2 (10:50→19:52)
[2021-06-11] MEDS: METOPROLOL SUCCINATE 50 MG TAB.SR.24H PO SCH (10:50)
[2021-06-11] MEDS: ZOSYN 3.375GM +NS 50ML IV SCH ×2 (10:50→19:52)
[2021-06-11] MEDS: NYSTATIN-TRIAMCINOLONE CREAM 15 GM TP SCH ×2 (10:51→19:53)
[2021-06-11] MEDS: FLUTICASONE/VILANTEROL 1 EACH BLST.W.DEV IH SCH (10:51)
[2021-06-11] MEDS: BALSAM PERU/CASTOR OIL 60 GM TUBE TP SCH (10:52)
[2021-06-11 12:00] VITALS: BP 136/62
[2021-06-11] MEDS: HYDROCODONE/ACETAMINOPHEN 5/325 MG TAB PO PRN ×2 (14:42→22:26)
[2021-06-11 16:00] VITALS: BP 145/71
[2021-06-11] MEDS: ATORVASTATIN 40 MG TABLET PO SCH (17:50)
[2021-06-11] MEDS: TRAZODONE HCL 100 MG TABLET PO SCH (19:52)
[2021-06-11 20:00] VITALS: BP 140/68
[2021-06-12] VITALS: BP 136/69
[2021-06-12 04:00] VITALS: BP 147/69
[2021-06-12] MEDS: HYDROCODONE/ACETAMINOPHEN 5/325 MG TAB PO PRN ×2 (06:32→11:48)
[2021-06-12] MEDS: INSULIN HUMULIN R 100 UNIT/ML 3ML SQ SCH (06:33)
[2021-06-12 07:54] LABS: BASOPHILS % (AUTO) 0.7 % (0.0-5.0); EOSINOPHILS % (AUTO) 0.9 % (0.0-8.0); HEMATOCRIT 23.7 % (36-48); LYMPHOCYTES % (AUTO) 12.3 % (21.0-51.0); MEAN CORPUSCULAR HEMOGLOBIN 29.6 pg (27.0-33.0); MEAN CORPUSCULAR HGB CONC 33.3 g/dL (32.0-36.0); MEAN CORPUSCULAR VOLUME 88.8 fL (79-99); MONOCYTES % (AUTO) 7.2 % (3.0-13.0); NEUTROPHILS % (AUTO) 78.4 % (40.0-77.0); PLATELET COUNT (AUTO) 291 K/uL (130-400); RED BLOOD CELL COUNT(AUTO) 2.67 MIL/uL (4.00-5.50); RED CELL DISTRIBUTION WIDTH 13.8 % (11.0-15.5); WHITE BLOOD COUNT (AUTO) 12.7 K/uL (4.8-10.8)
[2021-06-12 08:10] LABS: ALBUMIN 2.1 g/dL (3.5-5.0); BILIRUBIN,TOTAL 0.3 mg/dL (0.2-1.0); CREATININE 1.5 mg/dL (0.5-1.5); TOTAL PROTEIN, SERUM 6.8 g/dL (6.0-8.3)
[2021-06-12 08:14] VITALS: BP 140/70
[2021-06-12 08:24] LABS: POTASSIUM 2.9 mmol/L (3.5-5.1)
[2021-06-12] MEDS: ASPIRIN 81MG CHEW TAB PO SCH (08:41)
[2021-06-12] MEDS: METOPROLOL SUCCINATE 50 MG TAB.SR.24H PO SCH (08:41)
[2021-06-12] MEDS: GABAPENTIN 100 MG CAPSULE PO SCH (08:41)
[2021-06-12] MEDS: CLOPIDOGREL 75MG TAB PO SCH (08:41)
[2021-06-12] MEDS: FAMOTIDINE 20MG TAB PO SCH (08:41)
[2021-06-12] MEDS: FUROSEMIDE 20 MG TABLET PO SCH (08:43)
[2021-06-12] MEDS ORDERED: INSULIN GLARGINE 100 UNITS/ML 10 ML VIAL SQ SCH (09:00)
[2021-06-12] MEDS: BALSAM PERU/CASTOR OIL 60 GM TUBE TP SCH (09:02)
[2021-06-12] MEDS: NYSTATIN-TRIAMCINOLONE CREAM 15 GM TP SCH (09:02)
[2021-06-12] MEDS ORDERED: ALTEPLASE 2MG VIAL 2 MG/VIAL VIAL IVCATH SCH (11:30)
[2021-06-12 12:00] VITALS: BP 155/75
[2021-06-12 16:00] VITALS: BP 128/74
== END 2021-06-12 17:15 | DRG 475 ==
LOC: EDH 17:40 → EDHIP 21:45 → 3CH 06-04 15:59
PROVIDERS: ADMIT Internal Medicine; ATTEND Internal Medicine
PROC: 0Y6J0Z1 Detachment at Left Lower Leg, High, Open Approach (ICD-10-PCS; principal; 2021-06-11)
PROC: 3E0T3BZ Introduction of Anesthetic Agent into Peripheral Nerves and Plexi, Percutaneous Approach (ICD-10-PCS; 2021-06-11)
PROC: 3E0T33Z Introduction of Anti-inflammatory into Peripheral Nerves and Plexi, Percutaneous Approach (ICD-10-PCS; 2021-06-11)
DX: T87.89 Other complications of amputation stump (principal); E11.52 Type 2 diabetes mellitus with diabetic peripheral angiopathy with gangrene; M86.8X7 Other osteomyelitis, ankle and foot; I70.92 Chronic total occlusion of artery of the extremities; L03.116 Cellulitis of left lower limb; L03.115 Cellulitis of right lower limb; T81.49XA Infection following a procedure, other surgical site, initial encounter; E11.69 Type 2 diabetes mellitus with other specified complication; E78.00 Pure hypercholesterolemia, unspecified; I11.9 Hypertensive heart disease without heart failure; D64.9 Anemia, unspecified; E78.5 Hyperlipidemia, unspecified; E87.6 Hypokalemia; I25.10 Atherosclerotic heart disease of native coronary artery without angina pectoris; Y83.5 Amputation of limb(s) as the cause of abnormal reaction of the patient, or of later complication, without mention of misadventure at the time of the procedure; Z20.822 Contact with and (suspected) exposure to COVID-19; Z89.412 Acquired absence of left great toe; Y92.89 Other specified places as the place of occurrence of the external cause
CPT/HCPCS: 36415; 71045; 73660; 73718; 80048; 80053; 82550; 82948; 83605; 83880; 84132; 84145; 84484; 85025; 85027; 85610; 85730; 87635; 93005; 93926; 97039; C9803; G0378; J1815; J2001; J2250; J2405; J2543; J2704; J2710; J2795; J2997; J3010; J3480; J3490; J7070; J7120

== ENCOUNTER 2021-07-09 16:36 | Inpatient (IN) | payer OTHER ==
[~2021-07-09] VITALS: Ht 157.5 cm; Wt 75.7 kg
[~2021-07-09 16:36] MED LIST changes: +ACET-3194 PO; +ASPI-1197 PO; +ATOR40TA71 PO; +BALS60OI TP; +CLOP75TA14 PO; +CLOT45CR62 VG; +FAMO20TA8 PO; +FURO20TA4 PO; +GABA100C PO; +GUAI100S13 PO; +TRAM50TA4 PO
[2021-07-09] MEDS ORDERED: ZOSYN 3.375GM+NS 50ML 50 ML IV STA (18:21)
[2021-07-09 18:23] LABS: BASOPHILS % (AUTO) 0.5 % (0.0-5.0); EOSINOPHILS % (AUTO) 0.2 % (0.0-8.0); HEMATOCRIT 32.2 % (36-48); MEAN CORPUSCULAR HEMOGLOBIN 29.9 pg (27.0-33.0); MEAN CORPUSCULAR HGB CONC 33.9 g/dL (32.0-36.0); MEAN CORPUSCULAR VOLUME 88.5 fL (79-99); MONOCYTES % (AUTO) 4.6 % (3.0-13.0); NEUTROPHILS % (AUTO) 86.2 % (40.0-77.0); PLATELET COUNT (AUTO) 349 K/uL (130-400); RED BLOOD CELL COUNT(AUTO) 3.64 MIL/uL (4.00-5.50); RED CELL DISTRIBUTION WIDTH 14.1 % (11.0-15.5); WHITE BLOOD COUNT (AUTO) 12.8 K/uL (4.8-10.8)
[2021-07-09] MEDS ORDERED: 0.9%NACL 1000ML 1,000 ML IV ONE (18:30)
[2021-07-09] MEDS ORDERED: ACETAMINOPHEN 500 MG TABLET PO ONE (18:30)
[2021-07-09 18:45] LABS: ALBUMIN 1.7 g/dL (3.5-5.0); BILIRUBIN,TOTAL 0.7 mg/dL (0.2-1.0); CREATININE 1.6 mg/dL (0.5-1.5); TOTAL PROTEIN, SERUM 6.5 g/dL (6.0-8.3)
[2021-07-09 18:48] LABS: POTASSIUM 2.6 mmol/L (3.5-5.1)
[2021-07-09] MEDS ORDERED: 0.9%NACL 50ML 50 ML IV ONE (18:56)
[2021-07-09] MEDS ORDERED: ZOSYN 3.375GM+NS 50ML 3.38 GM in 0.9%NACL 50ML 50 ML IV SCH (20:30)
[2021-07-09 20:45] LABS: APPEARANCE,URINE Turbid (CLEAR); BILIRUBIN,URINE Negative (NEGATIVE); COLOR,URINE Yellow (YELLOW); GLUCOSE, URINE (UA) TRACE mg/dL (NEGATIVE); KETONES,URINE Negative (NEGATIVE); LEUKOCYTE ESTERASE ,URINE Large (NEGATIVE); NITRATE,URINE Positive (NEGATIVE); OCCULT BLOOD,URINE Moderate (NEGATIVE); PROTEIN,URINE POS 1+ mg/dL (NEGATIVE)
[2021-07-09 20:52] LABS: BACTERIA,URINE Many /HPF (None Seen); WBC,URINE 51-100 /HPF (0-1)
[2021-07-09 20:53] LABS: MUCUS,URINE Few LPF (None Seen); SQUAMOUS EPITHELIAL CELL,UR 0-2 /HPF (0-2)
[2021-07-09] MEDS: ZOSYN 3.375GM +NS 50ML IV SCH (21:00)
[2021-07-10] MEDS ORDERED: VANCOMYCIN 1G/250ML KIT 250 ML IV ONE ×3 (00:56→21:53)
[2021-07-10] MEDS: VANCOMYCIN 1G VIAL IVPB SCH ×3 (01:00→23:09)
[2021-07-10] MEDS: ZOSYN 3.375GM +NS 50ML IV SCH ×3 (07:00→22:06)
[2021-07-10 22:30] VITALS: BP 111/44
[2021-07-10] MEDS ORDERED: LIDOCAINE HCL-MPF 1% 2ML VIAL IV PRN (22:30)
[2021-07-10] MEDS ORDERED: POTASSIUM CHLORIDE 10% ELIXIR 20 MEQ/15 ML UDCUP PO PRN (22:30)
[2021-07-10 23:06] LABS: MAGNESIUM 0.8 mg/dL (1.80-2.40)
[2021-07-10] MEDS ORDERED: POTASSIUM CHLORIDE 20MEQ/100ML 100 ML IV ONE (23:07)
[2021-07-10] MEDS ORDERED: KCL 20 MEQ ERTAB PO ONE (23:07)
[2021-07-10] MEDS: POTASSIUM CHLORIDE 20MEQ/100ML 100 ML IV PRN (23:09)
[2021-07-10] MEDS: KCL 20 MEQ ERTAB PO PRN ×2 (23:10→23:47)
[2021-07-10 23:20] LABS: POTASSIUM 2.4 mmol/L (3.5-5.1)
[2021-07-10] MEDS ORDERED: MAGNESIUM 2GM PREMIX 50ML 50 ML IV PRN (23:30)
[2021-07-10] MEDS ORDERED: MAGNESIUM 2GM PREMIX 50ML 50 ML IV ONE (23:30)
[2021-07-11] MEDS ORDERED: GUAIFENESIN SUGAR-FREE 100 MG/5 ML UDCUP PO PRN (00:30)
[2021-07-11] MEDS ORDERED: ACETAMINOPHEN 325 MG TAB PO PRN (00:30)
[2021-07-11] MEDS ORDERED: TRAMADOL HCL 50 MG TABLET PO PRN (00:30)
[2021-07-11] MEDS ORDERED: ONDANSETRON 4MG TABLET PO PRN (00:30)
[2021-07-11] MEDS: KCL 20 MEQ ERTAB PO PRN ×2 (02:46→05:48)
[2021-07-11] MEDS: POTASSIUM CHLORIDE 20MEQ/100ML 100 ML IV PRN (02:50)
[2021-07-11] MEDS: ZOSYN 3.375GM +NS 50ML IV SCH ×2 (03:50→13:57)
[2021-07-11 04:00] VITALS: BP 125/68
[2021-07-11 05:22] LABS: BASOPHILS % (AUTO) 0.5 % (0.0-5.0); EOSINOPHILS % (AUTO) 2.2 % (0.0-8.0); HEMATOCRIT 25.8 % (36-48); LYMPHOCYTES % (AUTO) 15.2 % (21.0-51.0); MEAN CORPUSCULAR HEMOGLOBIN 28.9 pg (27.0-33.0); MEAN CORPUSCULAR HGB CONC 32.6 g/dL (32.0-36.0); MEAN CORPUSCULAR VOLUME 88.7 fL (79-99); MONOCYTES % (AUTO) 6.9 % (3.0-13.0); NEUTROPHILS % (AUTO) 74.7 % (40.0-77.0); PLATELET COUNT (AUTO) 230 K/uL (130-400); RED BLOOD CELL COUNT(AUTO) 2.91 MIL/uL (4.00-5.50); RED CELL DISTRIBUTION WIDTH 14.1 % (11.0-15.5); WHITE BLOOD COUNT (AUTO) 8.2 K/uL (4.8-10.8)
[2021-07-11 05:31] LABS: CREATININE 0.9 mg/dL (0.5-1.5); MAGNESIUM 2.3 mg/dL (1.80-2.40); POTASSIUM 3.2 mmol/L (3.5-5.1)
[2021-07-11] MEDS: INSULIN LISPRO 100 UNIT/ML 3ML SQ SCH ×2 (06:36→11:54)
[2021-07-11] MEDS ORDERED: INSULIN LISPRO 100 UNIT/ML 3ML SQ SCH (07:30)
[2021-07-11 07:48] VITALS: BP 116/57
[2021-07-11] MEDS ORDERED: FUROSEMIDE 20 MG TABLET PO SCH (09:00)
[2021-07-11] MEDS ORDERED: GABAPENTIN 100 MG CAPSULE PO SCH (09:00)
[2021-07-11] MEDS ORDERED: CLOPIDOGREL 75MG TAB PO SCH (09:00)
[2021-07-11] MEDS ORDERED: PANTOPRAZOLE 40 MG TAB DR PO SCH (09:00)
[2021-07-11] MEDS ORDERED: ASPIRIN 81MG CHEW TAB PO SCH (09:00)
[2021-07-11] MEDS ORDERED: POTASSIUM BICARB/CIT AC 25 MEQ TABLET.EFF PO SCH (09:00)
[2021-07-11] MEDS ORDERED: BALSAM PERU/CASTOR OIL 60 GM TUBE TP SCH (09:00)
[2021-07-11] MEDS ORDERED: METOPROLOL SUCCINATE 50 MG TAB.SR.24H PO SCH (09:00)
[2021-07-11] MEDS ORDERED: FLUTICASONE/VILANTEROL 1 EACH BLST.W.DEV IH SCH (09:00)
[2021-07-11] MEDS ORDERED: METFORMIN HCL 500 MG TABLET PO SCH (09:00)
[2021-07-11] MEDS ORDERED: TOUJEO SQ SCH (09:00)
[2021-07-11] MEDS ORDERED: CLOTRIMAZOLE 30 GM CREAM.GM. TP SCH (09:00)
[2021-07-11] MEDS ORDERED: FAMOTIDINE 20MG TAB PO SCH (09:00)
[2021-07-11 11:05] VITALS: BP 145/55
[2021-07-11] MEDS ORDERED: VANCOMYCIN 1G/250ML KIT 250 ML IV SCH (12:00)
[2021-07-11 16:11] VITALS: BP 123/59
[2021-07-11] MEDS ORDERED: ATORVASTATIN 40 MG TABLET PO SCH (17:00)
[2021-07-11] MEDS ORDERED: TRAZODONE HCL 100 MG TABLET PO SCH (21:00)
== END 2021-07-11 19:10 | DRG 565 ==
LOC: EDH 16:36 → EDHIP 20:20 → 3BH 07-10 21:35
PROVIDERS: ADMIT Internal Medicine; ATTEND Internal Medicine
DX: T87.44 Infection of amputation stump, left lower extremity (principal); N39.0 Urinary tract infection, site not specified; E11.51 Type 2 diabetes mellitus with diabetic peripheral angiopathy without gangrene; I12.9 Hypertensive chronic kidney disease with stage 1 through stage 4 chronic kidney disease, or unspecified chronic kidney disease; E11.22 Type 2 diabetes mellitus with diabetic chronic kidney disease; Z20.822 Contact with and (suspected) exposure to COVID-19; E78.5 Hyperlipidemia, unspecified; E87.6 Hypokalemia; E78.00 Pure hypercholesterolemia, unspecified; F32.9 Major depressive disorder, single episode, unspecified; K21.9 Gastro-esophageal reflux disease without esophagitis; N18.9 Chronic kidney disease, unspecified; E66.9 Obesity, unspecified; Z68.30 Body mass index [BMI] 30.0-30.9, adult; Y83.5 Amputation of limb(s) as the cause of abnormal reaction of the patient, or of later complication, without mention of misadventure at the time of the procedure; Y92.89 Other specified places as the place of occurrence of the external cause
CPT/HCPCS: 36415; 73590; 80048; 80053; 81001; 82550; 82948; 83605; 83735; 84484; 85025; 87040; 87070; 87076; 87077; 87088; 87186; 87635; C9803; G0378; J2543; J3370; J3475; J3480; J3490; J7030

== ENCOUNTER → 2021-09-01 | Outpatient (CLI) | payer OTHER ==
[~2021-09-01] MED LIST changes: +LIDOCAINE HCL 4% LTA SOL 4 ML VIAL TP ONE
== END | disposition home or self-care (01) ==
LOC: WHH 08:58
PROVIDERS: ATTEND Family Medicine
DX: T87.81 Dehiscence of amputation stump (principal); E11.621 Type 2 diabetes mellitus with foot ulcer; I70.234 Atherosclerosis of native arteries of right leg with ulceration of heel and midfoot; L89.610 Pressure ulcer of right heel, unstageable; L97.412 Non-pressure chronic ulcer of right heel and midfoot with fat layer exposed; S81.802D Unspecified open wound, left lower leg, subsequent encounter; I70.202 Unspecified atherosclerosis of native arteries of extremities, left leg; E11.22 Type 2 diabetes mellitus with diabetic chronic kidney disease; I12.9 Hypertensive chronic kidney disease with stage 1 through stage 4 chronic kidney disease, or unspecified chronic kidney disease; N18.9 Chronic kidney disease, unspecified; E11.51 Type 2 diabetes mellitus with diabetic peripheral angiopathy without gangrene; E78.5 Hyperlipidemia, unspecified; J44.9 Chronic obstructive pulmonary disease, unspecified; K21.9 Gastro-esophageal reflux disease without esophagitis; E78.00 Pure hypercholesterolemia, unspecified; F32.9 Major depressive disorder, single episode, unspecified; E66.9 Obesity, unspecified; Z68.36 Body mass index [BMI] 36.0-36.9, adult; Y83.5 Amputation of limb(s) as the cause of abnormal reaction of the patient, or of later complication, without mention of misadventure at the time of the procedure; X58.XXXD Exposure to other specified factors, subsequent encounter
CPT/HCPCS: 11042; 11045

== ENCOUNTER → 2021-09-08 | Outpatient (CLI) | payer OTHER | END | disposition home or self-care (01) | LOC: WHH 09:11 | PROVIDERS: ATTEND Family Medicine | DX: T87.81 Dehiscence of amputation stump (principal); E11.621 Type 2 diabetes mellitus with foot ulcer; I70.234 Atherosclerosis of native arteries of right leg with ulceration of heel and midfoot; L89.610 Pressure ulcer of right heel, unstageable; L97.412 Non-pressure chronic ulcer of right heel and midfoot with fat layer exposed; S81.802D Unspecified open wound, left lower leg, subsequent encounter; I70.202 Unspecified atherosclerosis of native arteries of extremities, left leg; E11.22 Type 2 diabetes mellitus with diabetic chronic kidney disease; I12.9 Hypertensive chronic kidney disease with stage 1 through stage 4 chronic kidney disease, or unspecified chronic kidney disease; N18.9 Chronic kidney disease, unspecified; E11.51 Type 2 diabetes mellitus with diabetic peripheral angiopathy without gangrene; E78.5 Hyperlipidemia, unspecified; J44.9 Chronic obstructive pulmonary disease, unspecified; K21.9 Gastro-esophageal reflux disease without esophagitis; E78.00 Pure hypercholesterolemia, unspecified; E66.9 Obesity, unspecified; F32.9 Major depressive disorder, single episode, unspecified; Z68.36 Body mass index [BMI] 36.0-36.9, adult; Y83.5 Amputation of limb(s) as the cause of abnormal reaction of the patient, or of later complication, without mention of misadventure at the time of the procedure | CPT/HCPCS: 11042 ==

== ENCOUNTER → 2021-09-15 | Outpatient (CLI) | payer OTHER | END | disposition home or self-care (01) | LOC: WHH 08:59 | PROVIDERS: ATTEND Family Medicine | DX: T87.81 Dehiscence of amputation stump (principal); E11.621 Type 2 diabetes mellitus with foot ulcer; I70.234 Atherosclerosis of native arteries of right leg with ulceration of heel and midfoot; L89.610 Pressure ulcer of right heel, unstageable; L97.412 Non-pressure chronic ulcer of right heel and midfoot with fat layer exposed; S81.802D Unspecified open wound, left lower leg, subsequent encounter; I70.202 Unspecified atherosclerosis of native arteries of extremities, left leg; E11.22 Type 2 diabetes mellitus with diabetic chronic kidney disease; I12.9 Hypertensive chronic kidney disease with stage 1 through stage 4 chronic kidney disease, or unspecified chronic kidney disease; N18.9 Chronic kidney disease, unspecified; E11.51 Type 2 diabetes mellitus with diabetic peripheral angiopathy without gangrene; E78.5 Hyperlipidemia, unspecified; J44.9 Chronic obstructive pulmonary disease, unspecified; K21.9 Gastro-esophageal reflux disease without esophagitis; E78.00 Pure hypercholesterolemia, unspecified; E66.9 Obesity, unspecified; F32.9 Major depressive disorder, single episode, unspecified; Z68.36 Body mass index [BMI] 36.0-36.9, adult; Y83.5 Amputation of limb(s) as the cause of abnormal reaction of the patient, or of later complication, without mention of misadventure at the time of the procedure | CPT/HCPCS: 11042; 97605 ==

== ENCOUNTER → 2021-09-22 | Outpatient (CLI) | payer OTHER | END | disposition home or self-care (01) | LOC: WHH 09:25 | PROVIDERS: ATTEND Family Medicine | DX: T87.81 Dehiscence of amputation stump (principal); E11.621 Type 2 diabetes mellitus with foot ulcer; I70.234 Atherosclerosis of native arteries of right leg with ulceration of heel and midfoot; L89.610 Pressure ulcer of right heel, unstageable; L97.412 Non-pressure chronic ulcer of right heel and midfoot with fat layer exposed; S81.802D Unspecified open wound, left lower leg, subsequent encounter; E11.628 Type 2 diabetes mellitus with other skin complications; I70.202 Unspecified atherosclerosis of native arteries of extremities, left leg; E11.22 Type 2 diabetes mellitus with diabetic chronic kidney disease; I12.9 Hypertensive chronic kidney disease with stage 1 through stage 4 chronic kidney disease, or unspecified chronic kidney disease; N18.9 Chronic kidney disease, unspecified; E11.51 Type 2 diabetes mellitus with diabetic peripheral angiopathy without gangrene; E78.5 Hyperlipidemia, unspecified; J44.9 Chronic obstructive pulmonary disease, unspecified; K21.9 Gastro-esophageal reflux disease without esophagitis; E78.00 Pure hypercholesterolemia, unspecified; E66.9 Obesity, unspecified; F32.9 Major depressive disorder, single episode, unspecified; Z68.36 Body mass index [BMI] 36.0-36.9, adult; X58.XXXD Exposure to other specified factors, subsequent encounter; Y83.5 Amputation of limb(s) as the cause of abnormal reaction of the patient, or of later complication, without mention of misadventure at the time of the procedure | CPT/HCPCS: 11042; 97605 ==

== ENCOUNTER → 2021-09-29 | Outpatient (CLI) | payer OTHER | END | disposition home or self-care (01) | LOC: WHH 09:26 | PROVIDERS: ATTEND Family Medicine | DX: T87.81 Dehiscence of amputation stump (principal); E11.621 Type 2 diabetes mellitus with foot ulcer; I70.234 Atherosclerosis of native arteries of right leg with ulceration of heel and midfoot; L89.610 Pressure ulcer of right heel, unstageable; L97.412 Non-pressure chronic ulcer of right heel and midfoot with fat layer exposed; S81.802D Unspecified open wound, left lower leg, subsequent encounter; I70.202 Unspecified atherosclerosis of native arteries of extremities, left leg; E11.22 Type 2 diabetes mellitus with diabetic chronic kidney disease; I12.9 Hypertensive chronic kidney disease with stage 1 through stage 4 chronic kidney disease, or unspecified chronic kidney disease; N18.9 Chronic kidney disease, unspecified; E11.51 Type 2 diabetes mellitus with diabetic peripheral angiopathy without gangrene; E78.5 Hyperlipidemia, unspecified; J44.9 Chronic obstructive pulmonary disease, unspecified; K21.9 Gastro-esophageal reflux disease without esophagitis; E78.00 Pure hypercholesterolemia, unspecified; E66.9 Obesity, unspecified; F32.9 Major depressive disorder, single episode, unspecified; Z68.36 Body mass index [BMI] 36.0-36.9, adult; X58.XXXD Exposure to other specified factors, subsequent encounter; Y83.5 Amputation of limb(s) as the cause of abnormal reaction of the patient, or of later complication, without mention of misadventure at the time of the procedure | CPT/HCPCS: 11042; A6021; A6197 ==

== ENCOUNTER → 2021-10-06 | Outpatient (CLI) | payer OTHER ==
[~2021-10-06] MED LIST changes: -LIDOCAINE HCL 4% LTA SOL 4 ML VIAL TP ONE
== END | disposition home or self-care (01) ==
LOC: WHH 08:55
PROVIDERS: ATTEND Family Medicine
DX: T87.81 Dehiscence of amputation stump (principal); E11.621 Type 2 diabetes mellitus with foot ulcer; I70.234 Atherosclerosis of native arteries of right leg with ulceration of heel and midfoot; L89.610 Pressure ulcer of right heel, unstageable; L97.412 Non-pressure chronic ulcer of right heel and midfoot with fat layer exposed; S81.802D Unspecified open wound, left lower leg, subsequent encounter; E11.628 Type 2 diabetes mellitus with other skin complications; I70.202 Unspecified atherosclerosis of native arteries of extremities, left leg; E11.22 Type 2 diabetes mellitus with diabetic chronic kidney disease; I12.9 Hypertensive chronic kidney disease with stage 1 through stage 4 chronic kidney disease, or unspecified chronic kidney disease; N18.9 Chronic kidney disease, unspecified; E11.51 Type 2 diabetes mellitus with diabetic peripheral angiopathy without gangrene; E78.5 Hyperlipidemia, unspecified; J44.9 Chronic obstructive pulmonary disease, unspecified; K21.9 Gastro-esophageal reflux disease without esophagitis; E78.00 Pure hypercholesterolemia, unspecified; E66.9 Obesity, unspecified; F32.9 Major depressive disorder, single episode, unspecified; Z68.36 Body mass index [BMI] 36.0-36.9, adult; X58.XXXD Exposure to other specified factors, subsequent encounter; Y83.5 Amputation of limb(s) as the cause of abnormal reaction of the patient, or of later complication, without mention of misadventure at the time of the procedure
CPT/HCPCS: 11042; A6021; A6197

== ENCOUNTER → 2021-10-13 | Outpatient (CLI) | payer OTHER ==
[~2021-10-13] MED LIST changes: +LIDOCAINE HCL 4% LTA SOL 4 ML VIAL TP ONE
== END | disposition home or self-care (01) ==
LOC: WHH 09:21
PROVIDERS: ATTEND Family Medicine
DX: T87.81 Dehiscence of amputation stump (principal); E11.621 Type 2 diabetes mellitus with foot ulcer; I70.234 Atherosclerosis of native arteries of right leg with ulceration of heel and midfoot; L89.610 Pressure ulcer of right heel, unstageable; L97.412 Non-pressure chronic ulcer of right heel and midfoot with fat layer exposed; S81.802D Unspecified open wound, left lower leg, subsequent encounter; E11.628 Type 2 diabetes mellitus with other skin complications; I70.202 Unspecified atherosclerosis of native arteries of extremities, left leg; E11.22 Type 2 diabetes mellitus with diabetic chronic kidney disease; I12.9 Hypertensive chronic kidney disease with stage 1 through stage 4 chronic kidney disease, or unspecified chronic kidney disease; N18.9 Chronic kidney disease, unspecified; E11.51 Type 2 diabetes mellitus with diabetic peripheral angiopathy without gangrene; E78.5 Hyperlipidemia, unspecified; J44.9 Chronic obstructive pulmonary disease, unspecified; K21.9 Gastro-esophageal reflux disease without esophagitis; E78.00 Pure hypercholesterolemia, unspecified; E66.9 Obesity, unspecified; F32.9 Major depressive disorder, single episode, unspecified; Z68.36 Body mass index [BMI] 36.0-36.9, adult; X58.XXXD Exposure to other specified factors, subsequent encounter; Y83.5 Amputation of limb(s) as the cause of abnormal reaction of the patient, or of later complication, without mention of misadventure at the time of the procedure
CPT/HCPCS: 11042

== ENCOUNTER → 2021-10-20 | Outpatient (CLI) | payer OTHER | END | disposition home or self-care (01) | LOC: WHH 09:34 | PROVIDERS: ATTEND Family Medicine | DX: T87.81 Dehiscence of amputation stump (principal); E11.621 Type 2 diabetes mellitus with foot ulcer; I70.234 Atherosclerosis of native arteries of right leg with ulceration of heel and midfoot; L89.610 Pressure ulcer of right heel, unstageable; L97.412 Non-pressure chronic ulcer of right heel and midfoot with fat layer exposed; S81.802D Unspecified open wound, left lower leg, subsequent encounter; E11.628 Type 2 diabetes mellitus with other skin complications; I70.202 Unspecified atherosclerosis of native arteries of extremities, left leg; E11.22 Type 2 diabetes mellitus with diabetic chronic kidney disease; I12.9 Hypertensive chronic kidney disease with stage 1 through stage 4 chronic kidney disease, or unspecified chronic kidney disease; N18.9 Chronic kidney disease, unspecified; E11.51 Type 2 diabetes mellitus with diabetic peripheral angiopathy without gangrene; E78.5 Hyperlipidemia, unspecified; J44.9 Chronic obstructive pulmonary disease, unspecified; K21.9 Gastro-esophageal reflux disease without esophagitis; E78.00 Pure hypercholesterolemia, unspecified; E66.9 Obesity, unspecified; F32.9 Major depressive disorder, single episode, unspecified; Z68.36 Body mass index [BMI] 36.0-36.9, adult; X58.XXXD Exposure to other specified factors, subsequent encounter; Y83.5 Amputation of limb(s) as the cause of abnormal reaction of the patient, or of later complication, without mention of misadventure at the time of the procedure | CPT/HCPCS: 11042 ==

== ENCOUNTER → 2021-11-03 | Outpatient (CLI) | payer OTHER | END | disposition home or self-care (01) | LOC: WHH 10:30 | PROVIDERS: ATTEND Family Medicine | DX: T87.81 Dehiscence of amputation stump (principal); E11.621 Type 2 diabetes mellitus with foot ulcer; I70.234 Atherosclerosis of native arteries of right leg with ulceration of heel and midfoot; L89.610 Pressure ulcer of right heel, unstageable; L97.412 Non-pressure chronic ulcer of right heel and midfoot with fat layer exposed; S81.802D Unspecified open wound, left lower leg, subsequent encounter; E11.628 Type 2 diabetes mellitus with other skin complications; I70.202 Unspecified atherosclerosis of native arteries of extremities, left leg; E11.22 Type 2 diabetes mellitus with diabetic chronic kidney disease; I12.9 Hypertensive chronic kidney disease with stage 1 through stage 4 chronic kidney disease, or unspecified chronic kidney disease; N18.9 Chronic kidney disease, unspecified; E11.51 Type 2 diabetes mellitus with diabetic peripheral angiopathy without gangrene; E78.5 Hyperlipidemia, unspecified; J44.9 Chronic obstructive pulmonary disease, unspecified; K21.9 Gastro-esophageal reflux disease without esophagitis; E78.00 Pure hypercholesterolemia, unspecified; E66.9 Obesity, unspecified; F32.9 Major depressive disorder, single episode, unspecified; Z68.36 Body mass index [BMI] 36.0-36.9, adult; X58.XXXD Exposure to other specified factors, subsequent encounter; Y83.5 Amputation of limb(s) as the cause of abnormal reaction of the patient, or of later complication, without mention of misadventure at the time of the procedure | CPT/HCPCS: 11042 ==

== ENCOUNTER → 2021-11-10 | Outpatient (CLI) | payer OTHER ==
[~2021-11-10] MED LIST changes: -LIDOCAINE HCL 4% LTA SOL 4 ML VIAL TP ONE
== END | disposition home or self-care (01) ==
LOC: WHH 09:57
PROVIDERS: ATTEND Family Medicine
DX: T87.81 Dehiscence of amputation stump (principal); E11.621 Type 2 diabetes mellitus with foot ulcer; I70.234 Atherosclerosis of native arteries of right leg with ulceration of heel and midfoot; L89.610 Pressure ulcer of right heel, unstageable; L97.412 Non-pressure chronic ulcer of right heel and midfoot with fat layer exposed; S81.802D Unspecified open wound, left lower leg, subsequent encounter; E11.628 Type 2 diabetes mellitus with other skin complications; I70.202 Unspecified atherosclerosis of native arteries of extremities, left leg; E11.22 Type 2 diabetes mellitus with diabetic chronic kidney disease; I12.9 Hypertensive chronic kidney disease with stage 1 through stage 4 chronic kidney disease, or unspecified chronic kidney disease; N18.9 Chronic kidney disease, unspecified; E11.51 Type 2 diabetes mellitus with diabetic peripheral angiopathy without gangrene; E78.5 Hyperlipidemia, unspecified; J44.9 Chronic obstructive pulmonary disease, unspecified; K21.9 Gastro-esophageal reflux disease without esophagitis; E78.00 Pure hypercholesterolemia, unspecified; E66.9 Obesity, unspecified; F32.9 Major depressive disorder, single episode, unspecified; Z68.36 Body mass index [BMI] 36.0-36.9, adult; X58.XXXD Exposure to other specified factors, subsequent encounter; Y83.5 Amputation of limb(s) as the cause of abnormal reaction of the patient, or of later complication, without mention of misadventure at the time of the procedure
CPT/HCPCS: 11042

== ENCOUNTER → 2021-11-24 | Outpatient (CLI) | payer OTHER, MEDICARE ==
[~2021-11-24] MED LIST changes: +LIDOCAINE HCL 4% LTA SOL 4 ML VIAL TP ONE
== END | disposition home or self-care (01) ==
LOC: WHH 10:13
PROVIDERS: ATTEND Family Medicine
DX: E11.621 Type 2 diabetes mellitus with foot ulcer (principal); I70.234 Atherosclerosis of native arteries of right leg with ulceration of heel and midfoot; L89.610 Pressure ulcer of right heel, unstageable; L97.412 Non-pressure chronic ulcer of right heel and midfoot with fat layer exposed; S81.802D Unspecified open wound, left lower leg, subsequent encounter; E11.628 Type 2 diabetes mellitus with other skin complications; I70.202 Unspecified atherosclerosis of native arteries of extremities, left leg; E11.22 Type 2 diabetes mellitus with diabetic chronic kidney disease; I12.9 Hypertensive chronic kidney disease with stage 1 through stage 4 chronic kidney disease, or unspecified chronic kidney disease; N18.9 Chronic kidney disease, unspecified; E11.51 Type 2 diabetes mellitus with diabetic peripheral angiopathy without gangrene; E78.5 Hyperlipidemia, unspecified; J44.9 Chronic obstructive pulmonary disease, unspecified; K21.9 Gastro-esophageal reflux disease without esophagitis; E78.00 Pure hypercholesterolemia, unspecified; E66.9 Obesity, unspecified; F32.9 Major depressive disorder, single episode, unspecified; Z68.36 Body mass index [BMI] 36.0-36.9, adult; X58.XXXD Exposure to other specified factors, subsequent encounter
CPT/HCPCS: 11042

== ENCOUNTER → 2021-12-01 | Outpatient (CLI) | payer OTHER, MEDICARE | END | disposition home or self-care (01) | LOC: WHH 09:50 | PROVIDERS: ATTEND Family Medicine | DX: E11.621 Type 2 diabetes mellitus with foot ulcer (principal); I70.234 Atherosclerosis of native arteries of right leg with ulceration of heel and midfoot; L89.610 Pressure ulcer of right heel, unstageable; L97.412 Non-pressure chronic ulcer of right heel and midfoot with fat layer exposed; T87.81 Dehiscence of amputation stump; S81.802D Unspecified open wound, left lower leg, subsequent encounter; E11.628 Type 2 diabetes mellitus with other skin complications; I70.202 Unspecified atherosclerosis of native arteries of extremities, left leg; E11.22 Type 2 diabetes mellitus with diabetic chronic kidney disease; I12.9 Hypertensive chronic kidney disease with stage 1 through stage 4 chronic kidney disease, or unspecified chronic kidney disease; N18.9 Chronic kidney disease, unspecified; E11.51 Type 2 diabetes mellitus with diabetic peripheral angiopathy without gangrene; E78.5 Hyperlipidemia, unspecified; J44.9 Chronic obstructive pulmonary disease, unspecified; K21.9 Gastro-esophageal reflux disease without esophagitis; E78.00 Pure hypercholesterolemia, unspecified; E66.9 Obesity, unspecified; F32.9 Major depressive disorder, single episode, unspecified; Z68.36 Body mass index [BMI] 36.0-36.9, adult; X58.XXXD Exposure to other specified factors, subsequent encounter; Y83.5 Amputation of limb(s) as the cause of abnormal reaction of the patient, or of later complication, without mention of misadventure at the time of the procedure | CPT/HCPCS: 11042 ==

== ENCOUNTER → 2021-12-08 | Outpatient (CLI) | payer OTHER, MEDICARE | END | disposition home or self-care (01) | LOC: WHH 09:31 | PROVIDERS: ATTEND Family Medicine | DX: E11.621 Type 2 diabetes mellitus with foot ulcer (principal); I70.234 Atherosclerosis of native arteries of right leg with ulceration of heel and midfoot; L89.610 Pressure ulcer of right heel, unstageable; L97.412 Non-pressure chronic ulcer of right heel and midfoot with fat layer exposed; T87.81 Dehiscence of amputation stump; S81.802D Unspecified open wound, left lower leg, subsequent encounter; E11.628 Type 2 diabetes mellitus with other skin complications; I70.202 Unspecified atherosclerosis of native arteries of extremities, left leg; E11.22 Type 2 diabetes mellitus with diabetic chronic kidney disease; I12.9 Hypertensive chronic kidney disease with stage 1 through stage 4 chronic kidney disease, or unspecified chronic kidney disease; N18.9 Chronic kidney disease, unspecified; E11.51 Type 2 diabetes mellitus with diabetic peripheral angiopathy without gangrene; E78.5 Hyperlipidemia, unspecified; J44.9 Chronic obstructive pulmonary disease, unspecified; K21.9 Gastro-esophageal reflux disease without esophagitis; E78.00 Pure hypercholesterolemia, unspecified; E66.9 Obesity, unspecified; F32.9 Major depressive disorder, single episode, unspecified; Z68.36 Body mass index [BMI] 36.0-36.9, adult; X58.XXXD Exposure to other specified factors, subsequent encounter; Y83.5 Amputation of limb(s) as the cause of abnormal reaction of the patient, or of later complication, without mention of misadventure at the time of the procedure | CPT/HCPCS: 11042 ==

== ENCOUNTER → 2021-12-15 | Outpatient (CLI) | payer OTHER, MEDICARE | END | disposition home or self-care (01) | LOC: WHH 09:57 | PROVIDERS: ATTEND Family Medicine | DX: T87.81 Dehiscence of amputation stump (principal); L89.610 Pressure ulcer of right heel, unstageable; E11.628 Type 2 diabetes mellitus with other skin complications; I70.203 Unspecified atherosclerosis of native arteries of extremities, bilateral legs; S81.802D Unspecified open wound, left lower leg, subsequent encounter; E11.22 Type 2 diabetes mellitus with diabetic chronic kidney disease; I12.9 Hypertensive chronic kidney disease with stage 1 through stage 4 chronic kidney disease, or unspecified chronic kidney disease; N18.9 Chronic kidney disease, unspecified; E11.51 Type 2 diabetes mellitus with diabetic peripheral angiopathy without gangrene; E78.5 Hyperlipidemia, unspecified; J44.9 Chronic obstructive pulmonary disease, unspecified; K21.9 Gastro-esophageal reflux disease without esophagitis; E78.00 Pure hypercholesterolemia, unspecified; E66.9 Obesity, unspecified; F32.9 Major depressive disorder, single episode, unspecified; Z68.36 Body mass index [BMI] 36.0-36.9, adult; X58.XXXD Exposure to other specified factors, subsequent encounter; Y83.5 Amputation of limb(s) as the cause of abnormal reaction of the patient, or of later complication, without mention of misadventure at the time of the procedure | CPT/HCPCS: 11042; A4450 ==

== ENCOUNTER → 2021-12-29 | Outpatient (CLI) | payer OTHER, MEDICARE | LOC: WHH 09:59 | PROVIDERS: ATTEND Family Medicine | DX: T87.81 Dehiscence of amputation stump (principal); L89.610 Pressure ulcer of right heel, unstageable; E11.628 Type 2 diabetes mellitus with other skin complications; I70.203 Unspecified atherosclerosis of native arteries of extremities, bilateral legs; S81.802D Unspecified open wound, left lower leg, subsequent encounter; E11.51 Type 2 diabetes mellitus with diabetic peripheral angiopathy without gangrene; E11.22 Type 2 diabetes mellitus with diabetic chronic kidney disease; I12.9 Hypertensive chronic kidney disease with stage 1 through stage 4 chronic kidney disease, or unspecified chronic kidney disease; N18.9 Chronic kidney disease, unspecified; E78.5 Hyperlipidemia, unspecified; E66.9 Obesity, unspecified; E78.00 Pure hypercholesterolemia, unspecified; J44.9 Chronic obstructive pulmonary disease, unspecified; K21.9 Gastro-esophageal reflux disease without esophagitis; F32.9 Major depressive disorder, single episode, unspecified; Z68.36 Body mass index [BMI] 36.0-36.9, adult; X58.XXXD Exposure to other specified factors, subsequent encounter; Y83.5 Amputation of limb(s) as the cause of abnormal reaction of the patient, or of later complication, without mention of misadventure at the time of the procedure | CPT/HCPCS: 11042 ==

== ENCOUNTER → 2022-01-05 | Outpatient (CLI) | payer OTHER, MEDICARE | END | disposition home or self-care (01) | LOC: WHH 09:59 | PROVIDERS: ATTEND Family Medicine | DX: L89.610 Pressure ulcer of right heel, unstageable (principal); T87.81 Dehiscence of amputation stump; E11.628 Type 2 diabetes mellitus with other skin complications; I70.203 Unspecified atherosclerosis of native arteries of extremities, bilateral legs; S81.802D Unspecified open wound, left lower leg, subsequent encounter; E11.22 Type 2 diabetes mellitus with diabetic chronic kidney disease; I12.9 Hypertensive chronic kidney disease with stage 1 through stage 4 chronic kidney disease, or unspecified chronic kidney disease; N18.9 Chronic kidney disease, unspecified; E11.51 Type 2 diabetes mellitus with diabetic peripheral angiopathy without gangrene; E78.5 Hyperlipidemia, unspecified; J44.9 Chronic obstructive pulmonary disease, unspecified; K21.9 Gastro-esophageal reflux disease without esophagitis; E78.00 Pure hypercholesterolemia, unspecified; E66.9 Obesity, unspecified; F32.9 Major depressive disorder, single episode, unspecified; Z68.36 Body mass index [BMI] 36.0-36.9, adult; X58.XXXD Exposure to other specified factors, subsequent encounter; Y83.5 Amputation of limb(s) as the cause of abnormal reaction of the patient, or of later complication, without mention of misadventure at the time of the procedure | CPT/HCPCS: 11042 ==

== ENCOUNTER → 2022-01-12 | Outpatient (CLI) | payer OTHER, MEDICARE | LOC: WHH 09:52 | PROVIDERS: ATTEND Family Medicine | DX: L89.610 Pressure ulcer of right heel, unstageable (principal); T87.81 Dehiscence of amputation stump; E11.628 Type 2 diabetes mellitus with other skin complications; I70.203 Unspecified atherosclerosis of native arteries of extremities, bilateral legs; S81.802D Unspecified open wound, left lower leg, subsequent encounter; E11.51 Type 2 diabetes mellitus with diabetic peripheral angiopathy without gangrene; E11.22 Type 2 diabetes mellitus with diabetic chronic kidney disease; I12.9 Hypertensive chronic kidney disease with stage 1 through stage 4 chronic kidney disease, or unspecified chronic kidney disease; N18.9 Chronic kidney disease, unspecified; E78.00 Pure hypercholesterolemia, unspecified; E78.5 Hyperlipidemia, unspecified; E66.9 Obesity, unspecified; K21.9 Gastro-esophageal reflux disease without esophagitis; J44.9 Chronic obstructive pulmonary disease, unspecified; F32.9 Major depressive disorder, single episode, unspecified; Z68.36 Body mass index [BMI] 36.0-36.9, adult; Z86.16 Personal history of COVID-19; X58.XXXD Exposure to other specified factors, subsequent encounter; Y83.5 Amputation of limb(s) as the cause of abnormal reaction of the patient, or of later complication, without mention of misadventure at the time of the procedure | CPT/HCPCS: 11042 ==

== ENCOUNTER → 2022-02-02 | Outpatient (CLI) | payer MEDICARE, OTHER | LOC: WHH 10:00 | PROVIDERS: ATTEND Family Medicine | DX: L89.614 Pressure ulcer of right heel, stage 4 (principal); T87.81 Dehiscence of amputation stump; E11.628 Type 2 diabetes mellitus with other skin complications; I70.203 Unspecified atherosclerosis of native arteries of extremities, bilateral legs; S81.802D Unspecified open wound, left lower leg, subsequent encounter; E11.51 Type 2 diabetes mellitus with diabetic peripheral angiopathy without gangrene; E11.22 Type 2 diabetes mellitus with diabetic chronic kidney disease; I12.9 Hypertensive chronic kidney disease with stage 1 through stage 4 chronic kidney disease, or unspecified chronic kidney disease; N18.9 Chronic kidney disease, unspecified; E78.00 Pure hypercholesterolemia, unspecified; E78.5 Hyperlipidemia, unspecified; E66.9 Obesity, unspecified; K21.9 Gastro-esophageal reflux disease without esophagitis; J44.9 Chronic obstructive pulmonary disease, unspecified; F32.9 Major depressive disorder, single episode, unspecified; Z68.36 Body mass index [BMI] 36.0-36.9, adult; Z86.16 Personal history of COVID-19; X58.XXXD Exposure to other specified factors, subsequent encounter; Y83.5 Amputation of limb(s) as the cause of abnormal reaction of the patient, or of later complication, without mention of misadventure at the time of the procedure | CPT/HCPCS: 11042; A6021; A6196 ==

== ENCOUNTER → 2022-02-09 | Outpatient (CLI) | payer OTHER, MEDICARE | END | disposition home or self-care (01) | LOC: WHH 09:47 | PROVIDERS: ATTEND Family Medicine | DX: L89.614 Pressure ulcer of right heel, stage 4 (principal); T87.81 Dehiscence of amputation stump; E11.628 Type 2 diabetes mellitus with other skin complications; I70.203 Unspecified atherosclerosis of native arteries of extremities, bilateral legs; S81.802D Unspecified open wound, left lower leg, subsequent encounter; E11.51 Type 2 diabetes mellitus with diabetic peripheral angiopathy without gangrene; E11.22 Type 2 diabetes mellitus with diabetic chronic kidney disease; I12.9 Hypertensive chronic kidney disease with stage 1 through stage 4 chronic kidney disease, or unspecified chronic kidney disease; N18.9 Chronic kidney disease, unspecified; E78.00 Pure hypercholesterolemia, unspecified; E78.5 Hyperlipidemia, unspecified; E66.9 Obesity, unspecified; K21.9 Gastro-esophageal reflux disease without esophagitis; J44.9 Chronic obstructive pulmonary disease, unspecified; F32.9 Major depressive disorder, single episode, unspecified; Z68.36 Body mass index [BMI] 36.0-36.9, adult; Z86.16 Personal history of COVID-19; X58.XXXD Exposure to other specified factors, subsequent encounter; Y83.5 Amputation of limb(s) as the cause of abnormal reaction of the patient, or of later complication, without mention of misadventure at the time of the procedure | CPT/HCPCS: 11042; A4450; A6021; A6197 ==

== ENCOUNTER → 2022-02-16 | Outpatient (CLI) | payer OTHER, MEDICARE | END | disposition home or self-care (01) | LOC: WHH 09:32 | PROVIDERS: ATTEND Family Medicine | DX: L89.614 Pressure ulcer of right heel, stage 4 (principal); T87.81 Dehiscence of amputation stump; E11.628 Type 2 diabetes mellitus with other skin complications; I70.203 Unspecified atherosclerosis of native arteries of extremities, bilateral legs; S81.802D Unspecified open wound, left lower leg, subsequent encounter; E11.51 Type 2 diabetes mellitus with diabetic peripheral angiopathy without gangrene; E11.22 Type 2 diabetes mellitus with diabetic chronic kidney disease; I12.9 Hypertensive chronic kidney disease with stage 1 through stage 4 chronic kidney disease, or unspecified chronic kidney disease; N18.9 Chronic kidney disease, unspecified; E78.00 Pure hypercholesterolemia, unspecified; E78.5 Hyperlipidemia, unspecified; E66.9 Obesity, unspecified; K21.9 Gastro-esophageal reflux disease without esophagitis; J44.9 Chronic obstructive pulmonary disease, unspecified; F32.9 Major depressive disorder, single episode, unspecified; Z68.36 Body mass index [BMI] 36.0-36.9, adult; Z86.16 Personal history of COVID-19; X58.XXXD Exposure to other specified factors, subsequent encounter; Y83.5 Amputation of limb(s) as the cause of abnormal reaction of the patient, or of later complication, without mention of misadventure at the time of the procedure | CPT/HCPCS: 11042; A6021; A6197 ==

== ENCOUNTER → 2022-02-23 | Outpatient (CLI) | payer OTHER, MEDICARE | END | disposition home or self-care (01) | LOC: WHH 09:38 | PROVIDERS: ATTEND Family Medicine | DX: L89.614 Pressure ulcer of right heel, stage 4 (principal); T87.81 Dehiscence of amputation stump; E11.628 Type 2 diabetes mellitus with other skin complications; I70.203 Unspecified atherosclerosis of native arteries of extremities, bilateral legs; S81.802D Unspecified open wound, left lower leg, subsequent encounter; E11.51 Type 2 diabetes mellitus with diabetic peripheral angiopathy without gangrene; E11.22 Type 2 diabetes mellitus with diabetic chronic kidney disease; I12.9 Hypertensive chronic kidney disease with stage 1 through stage 4 chronic kidney disease, or unspecified chronic kidney disease; N18.9 Chronic kidney disease, unspecified; E78.00 Pure hypercholesterolemia, unspecified; E78.5 Hyperlipidemia, unspecified; E66.9 Obesity, unspecified; K21.9 Gastro-esophageal reflux disease without esophagitis; J44.9 Chronic obstructive pulmonary disease, unspecified; F32.9 Major depressive disorder, single episode, unspecified; Z68.36 Body mass index [BMI] 36.0-36.9, adult; Z86.16 Personal history of COVID-19; X58.XXXD Exposure to other specified factors, subsequent encounter; Y83.5 Amputation of limb(s) as the cause of abnormal reaction of the patient, or of later complication, without mention of misadventure at the time of the procedure | CPT/HCPCS: 11042; A6021; A6197 ==

== ENCOUNTER → 2022-03-02 | Outpatient (CLI) | payer MEDICARE, OTHER | END | disposition home or self-care (01) | LOC: WHH 09:46 | PROVIDERS: ATTEND Family Medicine | DX: L89.614 Pressure ulcer of right heel, stage 4 (principal); T87.81 Dehiscence of amputation stump; E11.628 Type 2 diabetes mellitus with other skin complications; I70.203 Unspecified atherosclerosis of native arteries of extremities, bilateral legs; S81.802D Unspecified open wound, left lower leg, subsequent encounter; E11.51 Type 2 diabetes mellitus with diabetic peripheral angiopathy without gangrene; E11.22 Type 2 diabetes mellitus with diabetic chronic kidney disease; I12.9 Hypertensive chronic kidney disease with stage 1 through stage 4 chronic kidney disease, or unspecified chronic kidney disease; N18.9 Chronic kidney disease, unspecified; E78.00 Pure hypercholesterolemia, unspecified; E78.5 Hyperlipidemia, unspecified; E66.9 Obesity, unspecified; K21.9 Gastro-esophageal reflux disease without esophagitis; J44.9 Chronic obstructive pulmonary disease, unspecified; F32.9 Major depressive disorder, single episode, unspecified; Z68.36 Body mass index [BMI] 36.0-36.9, adult; Z86.16 Personal history of COVID-19; X58.XXXD Exposure to other specified factors, subsequent encounter; Y83.5 Amputation of limb(s) as the cause of abnormal reaction of the patient, or of later complication, without mention of misadventure at the time of the procedure | CPT/HCPCS: 11042; A6021; A6197 ==

== ENCOUNTER → 2022-03-16 | Outpatient (CLI) | payer OTHER, MEDICARE | END | disposition home or self-care (01) | LOC: WHH 09:32 | PROVIDERS: ATTEND Family Medicine | DX: L89.614 Pressure ulcer of right heel, stage 4 (principal); T87.81 Dehiscence of amputation stump; S81.802D Unspecified open wound, left lower leg, subsequent encounter; I70.203 Unspecified atherosclerosis of native arteries of extremities, bilateral legs; E11.628 Type 2 diabetes mellitus with other skin complications; E11.22 Type 2 diabetes mellitus with diabetic chronic kidney disease; I12.9 Hypertensive chronic kidney disease with stage 1 through stage 4 chronic kidney disease, or unspecified chronic kidney disease; N18.9 Chronic kidney disease, unspecified; E11.51 Type 2 diabetes mellitus with diabetic peripheral angiopathy without gangrene; E78.00 Pure hypercholesterolemia, unspecified; E78.5 Hyperlipidemia, unspecified; E66.9 Obesity, unspecified; K21.9 Gastro-esophageal reflux disease without esophagitis; J44.9 Chronic obstructive pulmonary disease, unspecified; F32.9 Major depressive disorder, single episode, unspecified; Z86.16 Personal history of COVID-19; Z68.36 Body mass index [BMI] 36.0-36.9, adult; X58.XXXD Exposure to other specified factors, subsequent encounter; Y83.5 Amputation of limb(s) as the cause of abnormal reaction of the patient, or of later complication, without mention of misadventure at the time of the procedure | CPT/HCPCS: 11042; A4450; A6021; A6197 ==

== ENCOUNTER → 2022-03-30 | Outpatient (CLI) | payer OTHER, MEDICARE ==
[~2022-03-30] MED LIST changes: -LIDOCAINE HCL 4% LTA SOL 4 ML VIAL TP ONE
== END | disposition home or self-care (01) ==
LOC: WHH 09:37
PROVIDERS: ATTEND Family Medicine
DX: L89.614 Pressure ulcer of right heel, stage 4 (principal); T87.81 Dehiscence of amputation stump; S81.802D Unspecified open wound, left lower leg, subsequent encounter; I70.203 Unspecified atherosclerosis of native arteries of extremities, bilateral legs; E11.628 Type 2 diabetes mellitus with other skin complications; E11.51 Type 2 diabetes mellitus with diabetic peripheral angiopathy without gangrene; E11.22 Type 2 diabetes mellitus with diabetic chronic kidney disease; I12.9 Hypertensive chronic kidney disease with stage 1 through stage 4 chronic kidney disease, or unspecified chronic kidney disease; N18.9 Chronic kidney disease, unspecified; E78.00 Pure hypercholesterolemia, unspecified; E78.5 Hyperlipidemia, unspecified; E66.9 Obesity, unspecified; K21.9 Gastro-esophageal reflux disease without esophagitis; J44.9 Chronic obstructive pulmonary disease, unspecified; F32.9 Major depressive disorder, single episode, unspecified; Z86.16 Personal history of COVID-19; Z68.36 Body mass index [BMI] 36.0-36.9, adult; X58.XXXD Exposure to other specified factors, subsequent encounter; Y83.5 Amputation of limb(s) as the cause of abnormal reaction of the patient, or of later complication, without mention of misadventure at the time of the procedure
CPT/HCPCS: 11042; A6021; A6197

== ENCOUNTER → 2022-03-31 | Outpatient (CLI) | payer MEDICARE, OTHER ==
[2022-03-31 12:23] LABS: BASOPHILS % (AUTO) 0.6 % (0.0-5.0); EOSINOPHILS % (AUTO) 4.5 % (0.0-8.0); HEMATOCRIT 35.4 % (36-48); LYMPHOCYTES % (AUTO) 26.8 % (21.0-51.0); MEAN CORPUSCULAR HEMOGLOBIN 29.6 pg (27.0-33.0); MEAN CORPUSCULAR HGB CONC 32.5 g/dL (32.0-36.0); MONOCYTES % (AUTO) 6.2 % (3.0-13.0); NEUTROPHILS % (AUTO) 61.5 % (40.0-77.0); PLATELET COUNT (AUTO) 213 K/uL (130-400); RED BLOOD CELL COUNT(AUTO) 3.89 MIL/uL (4.00-5.50); RED CELL DISTRIBUTION WIDTH 13.3 % (11.0-15.5); WHITE BLOOD COUNT (AUTO) 8.4 K/uL (4.8-10.8)
[2022-03-31 12:30] LABS: CREATININE 1.1 mg/dL (0.5-1.5); POTASSIUM 4.9 mmol/L (3.5-5.1)
[2022-03-31 14:14] LABS: INR 0.93 (0.85-1.15); PROTHROMBIN TIME 10.1 SEC (9.6-11.6)
[2022-03-31 14:16] LABS: PARTIAL THROMBOPLASTIN TIME 24.8 SEC (26.3-35.5)
== END | disposition home or self-care (01) ==
LOC: LAB 10:03
PROVIDERS: ATTEND Internal Medicine Cardiovascular Disease
DX: I12.9 Hypertensive chronic kidney disease with stage 1 through stage 4 chronic kidney disease, or unspecified chronic kidney disease (principal); I73.9 Peripheral vascular disease, unspecified; N18.9 Chronic kidney disease, unspecified
CPT/HCPCS: 36415; 80048; 85025; 85610; 85730

== ENCOUNTER → 2022-04-06 | Outpatient (CLI) | payer OTHER, MEDICARE ==
[~2022-04-06] MED LIST changes: +LIDOCAINE HCL 4% LTA SOL 4 ML VIAL TP ONE
== END | disposition home or self-care (01) ==
LOC: WHH 09:46
PROVIDERS: ATTEND Family Medicine
DX: L89.614 Pressure ulcer of right heel, stage 4 (principal); T87.81 Dehiscence of amputation stump; S81.802D Unspecified open wound, left lower leg, subsequent encounter; I70.203 Unspecified atherosclerosis of native arteries of extremities, bilateral legs; E11.628 Type 2 diabetes mellitus with other skin complications; E11.51 Type 2 diabetes mellitus with diabetic peripheral angiopathy without gangrene; E11.22 Type 2 diabetes mellitus with diabetic chronic kidney disease; I12.9 Hypertensive chronic kidney disease with stage 1 through stage 4 chronic kidney disease, or unspecified chronic kidney disease; N18.9 Chronic kidney disease, unspecified; E78.00 Pure hypercholesterolemia, unspecified; E78.5 Hyperlipidemia, unspecified; E66.9 Obesity, unspecified; K21.9 Gastro-esophageal reflux disease without esophagitis; J44.9 Chronic obstructive pulmonary disease, unspecified; F32.9 Major depressive disorder, single episode, unspecified; Z86.16 Personal history of COVID-19; Z68.36 Body mass index [BMI] 36.0-36.9, adult; X58.XXXD Exposure to other specified factors, subsequent encounter; Y83.5 Amputation of limb(s) as the cause of abnormal reaction of the patient, or of later complication, without mention of misadventure at the time of the procedure
CPT/HCPCS: 11042; A6021; A6196

== ENCOUNTER → 2022-04-20 | Outpatient (CLI) | payer OTHER, MEDICARE | END | disposition home or self-care (01) | LOC: WHH 10:01 | PROVIDERS: ATTEND Family Medicine | DX: L89.614 Pressure ulcer of right heel, stage 4 (principal); T87.81 Dehiscence of amputation stump; S81.802D Unspecified open wound, left lower leg, subsequent encounter; I70.203 Unspecified atherosclerosis of native arteries of extremities, bilateral legs; E11.628 Type 2 diabetes mellitus with other skin complications; E11.51 Type 2 diabetes mellitus with diabetic peripheral angiopathy without gangrene; E11.22 Type 2 diabetes mellitus with diabetic chronic kidney disease; I12.9 Hypertensive chronic kidney disease with stage 1 through stage 4 chronic kidney disease, or unspecified chronic kidney disease; N18.9 Chronic kidney disease, unspecified; E78.00 Pure hypercholesterolemia, unspecified; E78.5 Hyperlipidemia, unspecified; E66.9 Obesity, unspecified; K21.9 Gastro-esophageal reflux disease without esophagitis; J44.9 Chronic obstructive pulmonary disease, unspecified; F32.9 Major depressive disorder, single episode, unspecified; Z86.16 Personal history of COVID-19; Z68.36 Body mass index [BMI] 36.0-36.9, adult; X58.XXXD Exposure to other specified factors, subsequent encounter; Y83.5 Amputation of limb(s) as the cause of abnormal reaction of the patient, or of later complication, without mention of misadventure at the time of the procedure | CPT/HCPCS: 11042; A6021; A6197 ==

== ENCOUNTER → 2022-04-27 | Outpatient (CLI) | payer OTHER, MEDICARE ==
[~2022-04-27] MED LIST changes: -LIDOCAINE HCL 4% LTA SOL 4 ML VIAL TP ONE
== END | disposition home or self-care (01) ==
LOC: WHH 10:06
PROVIDERS: ATTEND Family Medicine
DX: T87.89 Other complications of amputation stump (principal); L89.614 Pressure ulcer of right heel, stage 4; S81.802D Unspecified open wound, left lower leg, subsequent encounter; I70.203 Unspecified atherosclerosis of native arteries of extremities, bilateral legs; E11.628 Type 2 diabetes mellitus with other skin complications; E11.51 Type 2 diabetes mellitus with diabetic peripheral angiopathy without gangrene; E11.22 Type 2 diabetes mellitus with diabetic chronic kidney disease; I12.9 Hypertensive chronic kidney disease with stage 1 through stage 4 chronic kidney disease, or unspecified chronic kidney disease; N18.9 Chronic kidney disease, unspecified; E78.00 Pure hypercholesterolemia, unspecified; E78.5 Hyperlipidemia, unspecified; E66.9 Obesity, unspecified; K21.9 Gastro-esophageal reflux disease without esophagitis; J44.9 Chronic obstructive pulmonary disease, unspecified; F32.9 Major depressive disorder, single episode, unspecified; Z86.16 Personal history of COVID-19; Z68.36 Body mass index [BMI] 36.0-36.9, adult; X58.XXXD Exposure to other specified factors, subsequent encounter; Y83.5 Amputation of limb(s) as the cause of abnormal reaction of the patient, or of later complication, without mention of misadventure at the time of the procedure
CPT/HCPCS: G0463

== ENCOUNTER → 2022-06-18 | Outpatient (CLI) | payer MEDICARE, OTHER | END | disposition home or self-care (01) | LOC: RAH 13:45 | PROVIDERS: ATTEND Urology | DX: N32.89 Other specified disorders of bladder (principal); R31.29 Other microscopic hematuria | CPT/HCPCS: 76770 ==

== ENCOUNTER → 2022-07-27 | Outpatient (CLI) | payer OTHER ==
[2022-07-27 12:23] LABS: BASOPHILS % (AUTO) 0.4 % (0.0-5.0); EOSINOPHILS % (AUTO) 0.4 % (0.0-8.0); HEMATOCRIT 36.6 % (36-48); LYMPHOCYTES % (AUTO) 19.9 % (21.0-51.0); MEAN CORPUSCULAR HEMOGLOBIN 30.4 pg (27.0-33.0); MEAN CORPUSCULAR HGB CONC 33.6 g/dL (32.0-36.0); MEAN CORPUSCULAR VOLUME 90.4 fL (79-99); NEUTROPHILS % (AUTO) 72.6 % (40.0-77.0); PLATELET COUNT (AUTO) 254 K/uL (130-400); RED BLOOD CELL COUNT(AUTO) 4.05 MIL/uL (4.00-5.50); RED CELL DISTRIBUTION WIDTH 12.5 % (11.0-15.5); WHITE BLOOD COUNT (AUTO) 12.6 K/uL (4.8-10.8)
[2022-07-27 12:33] LABS: HEMOGLOBIN A1C 10.2 % (4.0-6.0)
[2022-07-27 12:35] LABS: ALBUMIN 3.2 g/dL (3.5-5.0); CREATININE 1.1 mg/dL (0.5-1.5); POTASSIUM 5.3 mmol/L (3.5-5.1); TOTAL PROTEIN, SERUM 7.2 g/dL (6.0-8.3)
== END | disposition home or self-care (01) ==
LOC: LAB 11:05
PROVIDERS: ATTEND Internal Medicine Cardiovascular Disease
DX: I10 Essential (primary) hypertension (principal); E78.2 Mixed hyperlipidemia; Z79.899 Other long term (current) drug therapy
CPT/HCPCS: 36415; 80053; 80061; 83036; 85025

== ENCOUNTER → 2023-01-08 | Outpatient (CLI) | payer OTHER ==
[~2023-01-08] MED LIST changes: +CLOP-31 PO; -CLOP75TA14 PO
[2023-01-08 14:03] LABS: BASOPHILS % (AUTO) 0.5 % (0.0-5.0); EOSINOPHILS % (AUTO) 0.7 % (0.0-8.0); HEMATOCRIT 37.7 % (36-48); LYMPHOCYTES % (AUTO) 23.7 % (21.0-51.0); MEAN CORPUSCULAR HEMOGLOBIN 31.4 pg (27.0-33.0); MEAN CORPUSCULAR HGB CONC 33.4 g/dL (32.0-36.0); MONOCYTES % (AUTO) 5.2 % (3.0-13.0); NEUTROPHILS % (AUTO) 69.4 % (40.0-77.0); PLATELET COUNT (AUTO) 213 K/uL (130-400); RED BLOOD CELL COUNT(AUTO) 4.01 MIL/uL (4.00-5.50); RED CELL DISTRIBUTION WIDTH 12.6 % (11.0-15.5); WHITE BLOOD COUNT (AUTO) 11.1 K/uL (4.8-10.8)
[2023-01-08 14:26] LABS: HEMOGLOBIN A1C 9.4 % (4.0-6.0)
[2023-01-08 14:33] LABS: ALBUMIN 3.1 g/dL (3.5-5.0); POTASSIUM 4.5 mmol/L (3.5-5.1); TOTAL PROTEIN, SERUM 6.5 g/dL (6.0-8.3)
== END | disposition home or self-care (01) ==
LOC: LAB 10:23
PROVIDERS: ATTEND Internal Medicine Cardiovascular Disease
DX: I10 Essential (primary) hypertension (principal); E78.2 Mixed hyperlipidemia; E11.9 Type 2 diabetes mellitus without complications; Z79.4 Long term (current) use of insulin; Z79.01 Long term (current) use of anticoagulants; Z79.02 Long term (current) use of antithrombotics/antiplatelets; Z79.899 Other long term (current) drug therapy
CPT/HCPCS: 36415; 80053; 80061; 83036; 85025

== ENCOUNTER → 2023-09-06 | Outpatient (CLI) | payer OTHER ==
[~2023-09-06] MED LIST changes: -ACET-3194 PO; -BALS60OI TP; -CLOT45CR62 VG; -FAMO20TA8 PO; -FLUT1BLS IH; -FURO20TA4 PO; -GABA100C PO; -GUAI100S13 PO; -INSU300I SQ; +LISI10TA24 PO; -METO-408 PO; -OMEP40CA21 PO; +RIVA2.5T PO; -TRAM50TA4 PO; +[UNRECOGNIZED DRUG - CODE] PO
[2023-09-06 12:27] LABS: CREATININE 1.1 mg/dL (0.5-1.5); POTASSIUM 4.8 mmol/L (3.5-5.1)
== END | disposition home or self-care (01) ==
LOC: LAB 11:04
PROVIDERS: ATTEND Internal Medicine Cardiovascular Disease
DX: I73.9 Peripheral vascular disease, unspecified (principal)
CPT/HCPCS: 36415; 80048

== ENCOUNTER → 2023-09-13 | Outpatient (CLI) | payer OTHER ==
[~2023-09-13] MED LIST changes: +IOHEXOL 350 MG/ML 100ML INFUS..BTL IV ONE; +IOHEXOL-350 50ML VIAL IV ONE
== END | disposition home or self-care (01) ==
LOC: RAH 09:21
PROVIDERS: ATTEND Internal Medicine Cardiovascular Disease
DX: K57.90 Diverticulosis of intestine, part unspecified, without perforation or abscess without bleeding (principal); I25.810 Atherosclerosis of coronary artery bypass graft(s) without angina pectoris; I73.9 Peripheral vascular disease, unspecified; I70.8 Atherosclerosis of other arteries; M47.815 Spondylosis without myelopathy or radiculopathy, thoracolumbar region; I70.90 Unspecified atherosclerosis
CPT/HCPCS: 75635; Q9967 ×2

== ENCOUNTER → 2023-11-23 | Outpatient (CLI) | payer OTHER ==
[~2023-11-23] MED LIST changes: -IOHEXOL 350 MG/ML 100ML INFUS..BTL IV ONE; -IOHEXOL-350 50ML VIAL IV ONE
[2023-11-23 16:24] LABS: BASOPHILS # (AUTO) 0.06 K/uL (0.00-0.20); BASOPHILS % (AUTO) 0.5 % (0.0-5.0); EOSINOPHILS # (AUTO) 0.22 K/uL (0.00-0.70); EOSINOPHILS % (AUTO) 1.7 % (0.0-8.0); LYMPHOCYTES # (AUTO) 2.6 K/uL (1.0-4.8); LYMPHOCYTES % (AUTO) 19.5 % (21.0-51.0); MEAN CORPUSCULAR HEMOGLOBIN 30.7 pg (27.0-33.0); MEAN CORPUSCULAR HGB CONC 32.9 g/dL (32.0-36.0); MEAN CORPUSCULAR VOLUME 93.6 fL (79-99); MONOCYTES # (AUTO) 0.7 K/uL (0.1-1.0); MONOCYTES % (AUTO) 5.4 % (3.0-13.0); NEUTROPHILS # (AUTO) 9.4 K/uL (1.8-7.7); NEUTROPHILS % (AUTO) 72.1 % (40.0-77.0); PLATELET COUNT (AUTO) 248 K/uL (130-400); RED BLOOD CELL COUNT(AUTO) 3.74 MIL/uL (4.00-5.50); RED CELL DISTRIBUTION WIDTH 13.7 % (11.0-15.5); WHITE BLOOD COUNT (AUTO) 13.1 K/uL (4.8-10.8)
[2023-11-23 16:31] LABS: CREATININE 1.4 mg/dL (0.5-1.5); POTASSIUM 5.9 mmol/L (3.5-5.1)
[2023-11-23 16:37] LABS: INR <= 0.93 (0.85-1.15); PROTHROMBIN TIME 10.4 SEC (9.6-11.6)
[2023-11-23 16:38] LABS: PARTIAL THROMBOPLASTIN TIME 27.9 SEC (26.3-35.5)
== END | disposition home or self-care (01) ==
LOC: LAB 12:41
PROVIDERS: ATTEND Internal Medicine Cardiovascular Disease
DX: E11.51 Type 2 diabetes mellitus with diabetic peripheral angiopathy without gangrene (principal); L98.499 Non-pressure chronic ulcer of skin of other sites with unspecified severity; I25.10 Atherosclerotic heart disease of native coronary artery without angina pectoris; Z79.01 Long term (current) use of anticoagulants; Z79.899 Other long term (current) drug therapy
CPT/HCPCS: 36415; 80048; 85025; 85610; 85730

== ENCOUNTER → 2023-11-25 | Outpatient (CLI) | payer OTHER | END | disposition home or self-care (01) | LOC: LAB 09:43 | PROVIDERS: ATTEND Internal Medicine Cardiovascular Disease | DX: I10 Essential (primary) hypertension (principal); I25.10 Atherosclerotic heart disease of native coronary artery without angina pectoris | CPT/HCPCS: 36415; 84132 ==

== ENCOUNTER → 2025-04-09 | Outpatient (CLI) | payer MEDICARE ==
[~2025-04-09] MED LIST changes: +INSU300I3 SQ; +LISI20TA24 PO; +PANT40TA54 PO; +TRAM-543 PO
== END | disposition home or self-care (01) ==
LOC: EDBD → RAH 09:22
PROVIDERS: ATTEND Internal Medicine
DX: R10.9 Unspecified abdominal pain (principal)

== ENCOUNTER 2025-05-27 10:53 | Emergency (ER) | payer MEDICARE ==
[~2025-05-27] VITALS: Ht 152.4 cm; Wt 90.7 kg
[~2025-05-27 10:53] MED LIST changes: -LISI10TA24 PO; -METF-446 PO; -[UNRECOGNIZED DRUG - CODE] PO
[2025-05-27 11:30] LABS: INR 1.12 (0.85-1.15)
--- NOTE | 2025-05-27 12:50 | NUR ---
DR. COTTO AT BEDSIDE, INFORMED MD OF PATEINT PICC LINE ACCIDENTAL REMOVAL, STATED TO REPLACE PICC LINE AND SEND HOME TO FOLLOW UP IN THE MORNING AT THE CLINIC FOR HER TREATMENT, ED MD SALDIVAR./AMINTA
--- NOTE | 2025-05-27 13:14 | NUR ---
RGV PICC NURSE AT BEDSIDE./AMINTA
--- NOTE | 2025-05-27 13:17 | NUR ---
RGV PICCS IS AT [facility] FOR PICC LINE PLACEMENT
--- NOTE | 2025-05-27 13:27 | ERN ---
General Chief Complaint: Other Problems Stated Complaint: DISLODGED PICC OR MIDLINE Time Seen by MD: 10:56 History of Present Illness Initial Comments 80-year-old female presents for accidentally removing her PICC line. She recently had a PICC line on her left arm placed for IV antibiotics. It was accidentally removed this morning. She was sent from a [facility] clinic for PICC line placement. She has a no complaints. Allergies: Coded Allergies: piperacillin (Unverified Allergy, Severe, REDNESS, 05/21/25) tazobactam (Unverified Allergy, Severe, REDNESS, 05/21/25) amlodipine (Unverified Allergy, Unknown, 05/14/25) Home Meds Reported Medications Lisinopril (Lisinopril) 20 Mg Tablet, 1 TAB PO DAILY for 30 Days, #30 TAB 0 Refills 05/15/25 Insulin Glargine,Hum.rec.anlog (Toujeo Max Solostar) 300 Unit/Ml (3 Ml) Insuln.pen, 40 UNIT SQ DAILYDINNER, SYRINGE 05/15/25 Insulin Glargine,Hum.rec.anlog (Toujeo Max Solostar) 300 Unit/Ml (3 Ml) Insuln.pen, 80 UNIT SQ AM, SYRINGE 05/15/25 Tramadol HCl/Acetaminophen (Tramadol-Acetaminophn 37.5-325) 37.5 Mg-325 Mg Tablet, 2 TAB PO Q6HPRN PRN for pain for 14 Days, #12 TAB 0 Refills 05/15/25 Pantoprazole Sodium (Pantoprazole Sodium) 40 Mg Tablet.dr, 1 TAB PO DAILY for 30 Days, #30 TAB 0 Refills 05/15/25 Rivaroxaban (Xarelto) 2.5 Mg Tablet, 2.5 MG PO BID, TAB 05/19/23 Atorvastatin Calcium (Atorvastatin Calcium) 40 Mg Tablet, 40 MG PO DAILYDINNER, TAB 06/03/21 Aspirin (Aspirin) 81 Mg Tab.chew, 81 MG PO DAILY, TAB.CHEW 06/03/21 Clopidogrel Bisulfate (Plavix) 75 Mg Tablet, 75 MG PO DAILY, TAB 06/03/21 Trazodone HCl (Trazodone HCl) 100 Mg Tablet, 100 MG PO HS, TAB 11/09/19 Past Medical History Past Medical History: Depression, Diabetes-Type II, GERD, High Cholesterol, Hypertension Medical History Other: L BKA, OSTEOMYELITIS, PVD, CHRONIC KIDNEY DIESASE, Past Surgical History: Appendectomy, Hysterectomy, Cholecystectomy, Other Surgical History Other: L BKA Family History Family History: Negative Social History Social History: Negative, Lives with family Results Laboratory and Microbiology Lab and Micro Result Laboratory Tests Test 05/27/25 11:16 Prothrombin Time 11.7 SEC (9.6-11.6) H Prothromb Time International Ratio 1.12 (0.85-1.15) Activated Partial Thromboplast Time 25.9 SEC (26.3-35.5) L MDM CC: PICC line was accidentally removed Patient has a historian Comorbidities include diabetes and hypertension Vital signs are stable Coags are stable PICC line team called, PICC line was reinserted Chest x-ray confirms placement independently interpreted by me. We will DC ED Course Orders Procedure Category Date Status Time Place Picc Line CPOE 05/27/25 Transmitted 10:59 Pt And Ptt LAB 05/27/25 Complete 11:02 Chest 1vw RAD 05/27/25 Resulted 13:29 Chest 1vw RAD 05/27/25 Taken 13:48 Chest 1vw RAD 05/27/25 Resulted 13:56 Vital Signs Date Time Temp Pulse Resp B/P (MAP) Pulse Ox O2 Delivery O2 Flow Rate FiO2 05/27/25 14:44 97.5 70 17 110/60 100 Room Air* 0 21 05/27/25 13:46 97.9 74 17 155/67 97 Room Air* 0 21 05/27/25 11:37 75 18 128/57 100 Room Air* 0 21 05/27/25 10:55 99.0 82 20 153/71 97 Room Air DX & DISP Disposition: Discharge Departure Impression: Primary Impression: S/P PICC central line placement Condition: Stable Assign Patient to: The PICC line was placed in the right arm. You can use it now. Follow up as an outpatient tomorrow. Return to the emergency department as needed. Referrals: CAPRICE CHANEY MD (PCP) KATYA MORGAN DO May 27, 2025 13:27
--- NOTE | 2025-05-27 14:23 | HMCIMG ---
EXAM: CR Chest, 2 View. CLINICAL HISTORY: PICC LINE PLACEMENT COMPARISON: None. FINDINGS: Right PICC courses cephalad likely terminating within the right jugular vein, recommend adjustment. LUNGS: The lungs show no infiltrate or other acute finding. PLEURAL SPACES: No pleural effusion or pneumothorax. MEDIASTINUM: Cardiac size and mediastinal contours within normal limits. BONES: No acute osseous abnormality. IMPRESSION: 1. Right PICC line malpositioned, likely terminating in right jugular vein. Recommend adjustment. /[place]
--- NOTE | 2025-05-27 14:24 | HMCIMG ---
EXAM: CR Chest, 2 View. CLINICAL HISTORY: PICC LINE PLACEMENT COMPARISON: Radiograph from earlier today. FINDINGS: Right PICC now terminates overlying the distal SVC. No pneumothorax. Remainder of the examination is unchanged. IMPRESSION: 1. Right PICC line appropriately positioned in distal SVC. /[place]
[2025-05-27 14:44] VITALS: BP 110/60; PULSE 70; RESP 17; TEMP 97.6; O2SAT 100
== END 2025-05-27 14:46 | disposition home or self-care (01) ==
LOC: EDH 10:53
DX: T82.9XXA Unspecified complication of cardiac and vascular prosthetic device, implant and graft, initial encounter (principal); E11.51 Type 2 diabetes mellitus with diabetic peripheral angiopathy without gangrene; E78.00 Pure hypercholesterolemia, unspecified; F32.A Depression, unspecified; I10 Essential (primary) hypertension; Z79.01 Long term (current) use of anticoagulants; Z79.02 Long term (current) use of antithrombotics/antiplatelets; Z79.82 Long term (current) use of aspirin; Z79.899 Other long term (current) drug therapy; Z88.0 Allergy status to penicillin; Z88.8 Allergy status to other drugs, medicaments and biological substances; Z89.512 Acquired absence of left leg below knee; Z90.49 Acquired absence of other specified parts of digestive tract; Z90.710 Acquired absence of both cervix and uterus; Z95.828 Presence of other vascular implants and grafts; Y82.8 Other medical devices associated with adverse incidents; Y92.89 Other specified places as the place of occurrence of the external cause
CPT/HCPCS: 36415; 71045; 85610; 85730; 99284